=== PATIENT | male | born 1965 | race African-American/Black ===

== ENCOUNTER 2017-03-06 14:31 | Emergency (ER) | payer OTHER ==
[2017-03-06] MEDS ORDERED: ASPIRIN 81 MG TABLET, CHEWABLE PO ONE (16:36)
--- NOTE | 2017-03-06 16:41 | ER Document Report ---
ED Medical Screen (RME) - General Chief Complaint: Chest Pain Stated Complaint: RIGHT SIDE PAIN Time Seen by Provider: 03/06/17 16:22 Mode of Arrival: Ambulatory Information source: Patient Notes: This is a 51-year-old -[place] male who presents for chest pain. He has a history of COPD and hypertension. He states that he has had intermittent right-sided chest pain with radiation to the right upper extremity for the past 2 or 3 days. He denies any shortness of breath. He has had no nausea vomiting or diaphoresis. Is that he has no prior history of this type of chest pain. Today he became concerned and wanted to come to the ER to make sure he was not having a heart attack. He has not had aspirin today but he states he took 4 aspirin yesterday. His current pain level was 3 out of 10 I have greeted and performed a rapid initial assessment of this patient. A comprehensive ED assessment and evaluation of the patient, analysis of test results and completion of the medical decision making process will be conducted by additional ED providers. TRAVEL OUTSIDE OF THE [place] IN LAST 30 DAYS: No - Related Data Allergies/Adverse Reactions: No Known Allergies Allergy (Verified 12/05/14 19:53) Past Medical History - General Information source: Patient - Social History Family history: CAD, CVA, DM, Hyperlipidemia, Hypertension, Malignancy - Past Medical History Cardiac Medical History: Reports: Hx Hypertension Pulmonary Medical History: Reports: Hx Asthma, Hx Bronchitis, Hx COPD Renal/ Medical History: Denies: Hx Peritoneal Dialysis Musculoskeltal Medical History: Reports Hx Musculoskeletal Trauma Psychiatric Medical History: Reports: Hx Depression Traumatic Medical History: Reports: Hx Fractures - Clavicle - Immunizations Immunizations up to date: Yes Hx Diphtheria, Pertussis, Tetanus Vaccination: Yes Physical Exam - Vital signs Vitals: Temp Pulse Resp BP Pulse Ox 98.1 F 81 18 160/80 H 99 03/06/17 14:51 03/06/17 14:51 03/06/17 14:51 03/06/17 14:51 03/06/17 14:51 - General General appearance: Appears well, Alert In distress: None - Respiratory Respiratory status: No respiratory distress Breath sounds: Normal. No: Rales, Rhonchi, Wheezing - Cardiovascular Rhythm: Regular Heart sounds: Normal auscultation, S1 appreciated, S2 appreciated Murmur: No Course - Vital Signs Vital signs: Temp Pulse Resp BP Pulse Ox 98.1 F 81 18 160/80 H 99 03/06/17 14:51 03/06/17 14:51 03/06/17 14:51 03/06/17 14:51 03/06/17 14:51
[2017-03-06 17:13] LABS: ABSOLUTE BASOPHILS # (AUTO) 0.1 10^3/uL (0.0-0.2); ABSOLUTE EOSINOPHILS # (AUTO) 0.2 10^3/uL (0.0-0.6); ABSOLUTE MONOCYTES (AUTO) 0.5 10^3/uL (0.1-1.4); ABSOLUTE NEUT (AUTO) 2.8 10^3/uL (1.7-8.2); HEMATOCRIT 48.9 % (37.9-51.0); HGB HCT DIFFERENCE -0.9; LYMPHOCYTES % (AUTO) 36.1 % (13-45); MEAN CORPUSCULAR HEMOGLOBIN 28.7 pg (27.0-33.4); MEAN CORPUSCULAR HGB CONC 32.8 g/dL (32.0-36.0); MEAN CORPUSCULAR VOLUME 88 fl (80-97); MONOCYTES % (AUTO) 9.1 % (3-13); RED BLOOD COUNT 5.59 10^6/uL (4.35-5.55); RED CELL DISTRIBUTION WIDTH 13.3 % (11.5-14.0); SEGMENTED NEUTROPHILS % (AUTO) 50.8 % (42-78); WHITE BLOOD COUNT 5.6 10^3/uL (4.0-10.5)
[2017-03-06 17:29] LABS: ALANINE AMINOTRANSFERASE 41 U/L (21-72); ALBUMIN 3.9 g/dL (3.5-5.0); ALKALINE PHOSPHATASE 54 U/L (38-126); ANION GAP 11 (5-19); ASPARTATE AMINO TRANSFERASE 31 U/L (17-59); BILIRUBIN,DIRECT 0.3 mg/dL (0.0-0.4); BILIRUBIN,TOTAL 0.4 mg/dL (0.2-1.3); BLOOD UREA NITROGEN 15 mg/dL (7-20); CALCIUM 9.2 mg/dL (8.4-10.2); CARBON DIOXIDE 25 mmol/L (22-30); CHLORIDE 104 mmol/L (98-107); CREATINE KINASE 393 U/L (55-170); CREATININE RESULT 1.02 mg/dL (0.52-1.25); GLUCOSE 80 mg/dL (75-110); POTASSIUM 3.8 mmol/L (3.6-5.0); SODIUM 140.4 mmol/L (137-145); TOTAL PROTEIN 6.9 g/dL (6.3-8.2)
[2017-03-06 17:40] LABS: CREATINE KINASE MB 2.23 ng/mL (<4.55)
[2017-03-06 17:41] LABS: TROPONIN I < 0.012 ng/mL
--- NOTE | 2017-03-06 17:55 | RADIOLOGY REPORT (SQ) ---
EXAM DESCRIPTION: CHEST SINGLE VIEW COMPLETED DATE/TIME: 03/06/2017 5:03 pm REASON FOR STUDY: right sided chest pain COMPARISON: 09/03/2016 EXAM PARAMETERS: NUMBER OF VIEWS: One view. TECHNIQUE: Single frontal radiographic view of the chest acquired. RADIATION DOSE: NA LIMITATIONS: None. FINDINGS: LUNGS AND PLEURA: No acute opacities, masses or pneumothorax. No pleural effusion. MEDIASTINUM AND HILAR STRUCTURES: No masses. Contour normal. HEART AND VASCULAR STRUCTURES: Heart normal in size. Normal vasculature. BONES: No acute findings. HARDWARE: None in the chest. OTHER: No other significant finding. IMPRESSION: NO ACUTE RADIOGRAPHIC FINDING IN THE CHEST. TECHNICAL DOCUMENTATION: JOB ID: [id number]
--- NOTE | 2017-03-06 19:11 | ER Document Report ---
ED General - General Chief Complaint: Chest Pain Stated Complaint: RIGHT SIDE PAIN Time Seen by Provider: 03/06/17 16:22 Mode of Arrival: Ambulatory Information source: Patient Notes: 51-year-old male presents with reproducible right chest wall pain with right arm pain of 2-3 day duration. pt ntoes the pain has been constant sicne last night . pt notes that it feels like a tightness around the arm with tingling of the fingers TRAVEL OUTSIDE OF THE [place] IN LAST 30 DAYS: No - HPI Onset: Other Onset/Duration: Persistent Quality of pain: Achy Severity: Mild Pain Level: 1 Associated symptoms: Chest pain Exacerbated by: Denies Relieved by: Other - resolved with movement and exertion Similar symptoms previously: No Recently seen / treated by doctor: No - Related Data Allergies/Adverse Reactions: No Known Allergies Allergy (Verified 03/06/17 17:58) Past Medical History - General Information source: Patient - Social History Smoking Status: Current Every Day Smoker Cigarette use (# per day): Yes Chew tobacco use (# tins/day): No Smoking Education Provided: No Frequency of alcohol use: Occasional Drug Abuse: None Family History: Malignancy - Past Medical History Cardiac Medical History: Reports: Hx Hypertension Pulmonary Medical History: Reports: Hx Asthma, Hx Bronchitis, Hx COPD Renal/ Medical History: Denies: Hx Peritoneal Dialysis Musculoskeltal Medical History: Reports Hx Musculoskeletal Trauma Psychiatric Medical History: Reports: Hx Depression Traumatic Medical History: Reports: Hx Fractures - Clavicle Surgical Hx: Negative - Immunizations Immunizations up to date: Yes Hx Diphtheria, Pertussis, Tetanus Vaccination: Yes Hx Pneumococcal Vaccination: 07/11/12 Review of Systems - Review of Systems Notes: PHYSICAL EXAMINATION: GENERAL: Well-appearing, well-nourished and in no acute distress. HEAD: Atraumatic, normocephalic. EYES: Pupils equal round and reactive to light, extraocular movements intact, sclera anicteric, conjunctiva are normal. ENT: Nares patent, oropharynx clear without exudates. Moist mucous membranes. NECK: Normal range of motion, supple without lymphadenopathy LUNGS: Breath sounds clear to auscultation bilaterally and equal. No wheezes rales or rhonchi. HEART: Regular rate and rhythm without murmurs ABDOMEN: Soft, nontender, nondistended abdomen. No guarding, no rebound. No masses appreciated. Musculoskeletal: Normal range of motion, no pitting or edema. No cyanosis. NEUROLOGICAL: Cranial nerves grossly intact. Normal speech, normal gait. Normal sensory, motor exams PSYCH: Normal mood, normal affect. SKIN: Warm, Dry, normal turgor, no rashes or lesions noted. Physical Exam - Vital signs Vitals: Temp Pulse Resp BP Pulse Ox 98.1 F 81 18 160/80 H 99 03/06/17 14:51 03/06/17 14:51 03/06/17 14:51 03/06/17 14:51 03/06/17 14:51 Course - Re-evaluation Re-evalutation: 03/06/17 19:10 Given that chest pain has been constant since last night, pain is improved with exertion and movement and is reproducible on palpation I have low suspicion for a cardiac event however a second set of troponin is pending at this time 03/06/17 23:18 Patient's pain appears to be noncardiac, 2 sets of cardiac enzymes are negative. Patient otherwise is stable. He refuses to be admitted, will discharge him to follow-up with camera assembler After performing a Medical Screening Examination, I estimate there is LOW risk for RUPTURED ESOPHAGUS, PNEUMOTHORAX, PULMONARY EMBOLISM, ACUTE CORONARY SYNDROME, OR THORACIC AORTIC DISSECTION, thus I consider the discharge disposition reasonable. I have reevaluated this patient multiple times and no significant life threatening changes are noted. The patient and I have discussed the diagnosis and risks, and we agree with discharging home with close follow-up. We also discussed returning to the Emergency Department immediately if new or worsening symptoms occur. We have discussed the symptoms which are most concerning (e.g., bloody sputum, worsening pain or shortness of breath) that necessitate immediate return. - Vital Signs Vital signs: Temp Pulse Resp BP Pulse Ox 98.7 F 66 17 107/55 L 100 03/06/17 17:55 03/06/17 17:55 03/06/17 21:01 03/06/17 21:01 03/06/17 21:01 - Laboratory Result Diagrams: 03/06/17 16:45 03/06/17 16:45 Laboratory results interpreted by me: 03/06/17 03/06/17 16:45 16:45 RBC 5.59 H Creatine Kinase 393 H - Diagnostic Test Radiology reviewed: Image reviewed, Reports reviewed - EKG Interpretation by Me EKG shows normal: Sinus rhythm, [place], Intervals, QRS Complexes Discharge - Discharge Clinical Impression: Chest pain Qualifiers: Chest pain type: unspecified Qualified Code(s): R07.9 - Chest pain, unspecified Condition: Stable Disposition: HOME, SELF-CARE Instructions: Chest Wall Pain ([facility]), Chest Pain of Unclear Cause ([facility]) Prescriptions: Naproxen 500 mg PO Q8 #20 tablet Referrals: RODRIGO DELGADILLO MD [ACTIVE STAFF] - Follow up tomorrow
[2017-03-06] MEDS: NITROGLYCERIN 0.4 MG/TAB 25 TAB/BOTTLE SL PRN ×2 (19:54→20:05)
--- NOTE | 2017-03-06 21:11 | EKG REPORT ---
SEVERITY:- BORDERLINE ECG - SINUS RHYTHM PROBABLE LEFT ATRIAL ABNORMALITY : Confirmed by: Robert Harry 06-Mar-2017 21:11:07
[2017-03-06 23:24] VITALS: BP 118/79
== END 2017-03-06 23:10 | disposition home or self-care (01) ==
LOC: ER 14:31
DX: R07.9 Chest pain, unspecified (principal); R07.89 Other chest pain; F17.210 Nicotine dependence, cigarettes, uncomplicated
CPT/HCPCS: 36415; 71010; 80053; 82550; 82553; 84484; 85025; 93005; 93010; 99285

== ENCOUNTER 2017-05-30 13:59 | Emergency (ER) | payer OTHER ==
[2017-05-30] MEDS ORDERED: BUDESONIDE/FORMOTEROL 160-4.5 MCG 60 PUFF/6 GM MDI IH ONE (14:59)
--- NOTE | 2017-05-30 15:29 | RADIOLOGY REPORT (SQ) ---
EXAM DESCRIPTION: CHEST PA/LAT COMPLETED DATE/TIME: 05/30/2017 3:12 pm REASON FOR STUDY: cough/sob COMPARISON: 03/06/2017 EXAM PARAMETERS: NUMBER OF VIEWS: two views TECHNIQUE: Digital Frontal and Lateral radiographic views of the chest acquired. RADIATION DOSE: NA LIMITATIONS: none FINDINGS: LUNGS AND PLEURA: No opacities, masses or pneumothorax. No pleural effusion. MEDIASTINUM AND HILAR STRUCTURES: No masses or contour abnormalities. HEART AND VASCULAR STRUCTURES: Heart normal size. No evidence for failure. BONES: No acute findings. HARDWARE: None in the chest. OTHER: No other significant finding. IMPRESSION: NO SIGNIFICANT RADIOGRAPHIC FINDING IN THE CHEST. TECHNICAL DOCUMENTATION: JOB ID: [id number] [employer]- All Rights Reserved
--- NOTE | 2017-05-30 15:41 | ER Document Report ---
ED General - General Chief Complaint: Breathing Difficulty Stated Complaint: DIFFICULTY BREATHING Time Seen by Provider: 05/30/17 14:58 Mode of Arrival: Ambulatory Information source: Patient Notes: Patient reports that he is felt short of breath for approximately 1 week. He states approximately 1 week ago he ran out of his inhaler. He states he has had a cough productive of clear phlegm. The shortness of breath is worse with exertion and better with rest. There is no known radiation of the symptoms. They are constant. He denies any fever or rashes. TRAVEL OUTSIDE OF THE [place] IN LAST 30 DAYS: No - Related Data Allergies/Adverse Reactions: No Known Allergies Allergy (Verified 05/30/17 14:08) Home Medications: Current Home Medications Budesonide/Formoterol Fumarate [Symbicort HFA 160-4.5 mcg Inhaler 6 gm] [History] Past Medical History - General Information source: Patient - Social History Smoking Status: Former Smoker Chew tobacco use (# tins/day): No Frequency of alcohol use: Occasional Drug Abuse: None Family History: Reviewed & Not Pertinent, Malignancy - Past Medical History Cardiac Medical History: Reports: Hx Hypertension Pulmonary Medical History: Reports: Hx Asthma, Hx Bronchitis, Hx COPD Renal/ Medical History: Denies: Hx Peritoneal Dialysis Musculoskeltal Medical History: Reports Hx Musculoskeletal Trauma Psychiatric Medical History: Reports: Hx Depression Traumatic Medical History: Reports: Hx Fractures - Clavicle Surgical Hx: Negative - Immunizations Immunizations up to date: Yes Hx Diphtheria, Pertussis, Tetanus Vaccination: Yes Hx Pneumococcal Vaccination: 07/11/12 Review of Systems - Review of Systems Constitutional: denies: Chills, Fever Cardiovascular: denies: Chest pain, Palpitations Respiratory: Cough, Short of breath -: Yes All other systems reviewed and negative Physical Exam - Vital signs Vitals: Temp Pulse Resp BP Pulse Ox 98.2 F 76 20 143/96 H 95 05/30/17 14:05 05/30/17 14:05 05/30/17 14:05 05/30/17 14:05 05/30/17 14:05 Interpretation: Hypertensive - General General appearance: Appears well, Alert - HEENT Head: Normocephalic, Atraumatic Eyes: Normal Pupils: PERRL - Respiratory Respiratory status: No respiratory distress Chest status: Nontender Breath sounds: Decreased air movement, Rhonchi Chest palpation: Normal - Cardiovascular Rhythm: Regular Heart sounds: Normal auscultation Murmur: No - Abdominal Inspection: Normal Distension: No distension Bowel sounds: Normal Tenderness: Nontender Organomegaly: No organomegaly - Back Back: Normal, Nontender - Extremities General upper extremity: Normal inspection, Nontender, Normal color, Normal ROM , Normal temperature General lower extremity: Normal inspection, Nontender, Normal color, Normal ROM , Normal temperature, Normal weight bearing. No: Kylie's sign - Neurological Neuro grossly intact: Yes Cognition: Normal Orientation: AAOx4 Amari Coma Scale Eye Opening: Spontaneous [place] Coma Scale Verbal: Oriented Amari Coma Scale Motor: Obeys Commands Amari Coma Scale Total: 15 Speech: Normal Motor strength normal: LUE, RUE, LLE, RLE Sensory: Normal - Psychological Associated symptoms: Normal affect, Normal mood - Skin Skin Temperature: Warm Skin Moisture: Dry Skin Color: Normal Course - Vital Signs Vital signs: Temp Pulse Resp BP Pulse Ox 98.2 F 76 20 143/96 H 95 05/30/17 14:05 05/30/17 14:05 05/30/17 14:05 05/30/17 14:05 05/30/17 14:05 - Diagnostic Test Radiology reviewed: Image reviewed, Reports reviewed - No acute pathology on chest x-ray. Discharge - Discharge Clinical Impression: Acute exacerbation of chronic obstructive pulmonary disease (COPD) Condition: Stable Disposition: HOME, SELF-CARE Instructions: Chronic Obstructive Lung Disease ([facility]) Additional Instructions: Please call your primary care provider as soon as possible to arrange follow-up. Prescriptions: Prednisone [Deltasone 20 mg Tablet] 3 tab PO DAILY 5 Days tablet
[2017-05-30 15:49] VITALS: BP 147/95
== END 2017-05-30 15:49 | disposition home or self-care (01) ==
LOC: ER 13:59
DX: J44.1 Chronic obstructive pulmonary disease with (acute) exacerbation (principal); T38.0X6A Underdosing of glucocorticoids and synthetic analogues, initial encounter; Z91.128 Patient's intentional underdosing of medication regimen for other reason; Z91.14 Patient's other noncompliance with medication regimen; R05 Cough; R06.02 Shortness of breath; I10 Essential (primary) hypertension; Z87.891 Personal history of nicotine dependence
CPT/HCPCS: 99284; 71020; J3490

== ENCOUNTER 2018-01-30 17:42 | Emergency (ER) | payer OTHER ==
--- NOTE | 2018-01-30 19:51 | ER Document Report ---
HPI - HPI Patient complains to provider of: Wheezing for 2 days Onset: Other - 2 days Onset/Duration: Persistent, Worse Pain Level: 3 Context: 52-year-old asthmatic smoker COPD patient ran out of the Aniwayscort 1 week ago. He also started wheezing and coughing with shortness of breath/chest tightness for 2 days. He attributes this to the weather change. He does have a albuterol metered-dose inhaler which has not helped since Monday. No fever or chills but he has been having some night sweats. PCP: [email or web address] but has not been for some time. Associated Symptoms: None Exacerbated by: Denies Relieved by: Denies Similar symptoms previously: Yes Recently seen / treated by doctor: No - ROS ROS below otherwise negative: Yes Systems Reviewed and Negative: Yes All other systems reviewed and negative Past Medical History - General Information source: Patient - Social History Smoking Status: Current Every Day Smoker Frequency of alcohol use: None Drug Abuse: Marijuana Lives with: Family Family History: Reviewed & Not Pertinent, Malignancy - Past Medical History Cardiac Medical History: Reports: Hx Hypertension Pulmonary Medical History: Reports: Hx Asthma, Hx Bronchitis, Hx COPD Renal/ Medical History: Denies: Hx Peritoneal Dialysis Musculoskeltal Medical History: Reports Hx Musculoskeletal Trauma Psychiatric Medical History: Reports: Hx Depression Traumatic Medical History: Reports: Hx Fractures - Clavicle Surgical Hx: Negative - Immunizations Immunizations up to date: Yes Hx Diphtheria, Pertussis, Tetanus Vaccination: Yes Hx Pneumococcal Vaccination: 07/11/12 Vertical Provider Document - CONSTITUTIONAL Agree With Documented VS: Yes Exam Limitations: No Limitations - INFECTION CONTROL TRAVEL OUTSIDE OF THE [place] IN LAST 30 DAYS: No - HEENT HEENT: Pharyngeal Erythema. negative: Conjuctival Injection - NECK Neck: Supple. negative: Lymphadenopathy-Left, Lymphadenopathy-Right - RESPIRATORY Respiratory: Wheezing - Inspiratory expiratory bilateral - CARDIOVASCULAR Cardiovascular: Regular Rate, Regular Rhythm - GI/ABDOMEN Gastrointestinal: Abdomen Soft, Abdomen Non-Tender - MUSCULOSKELETAL/EXTREMETIES Musculoskeletal/Extremeties: MAEW - NEURO Level of Consciousness: Awake - DERM Integumentary: Warm, Dry, No Rash Course - Re-evaluation Re-evalutation: 01/30/18 20:35 wheezing persists but is not as bad, pulse ox 95%, going to xray. 01/30/18 21:10 Inspiratory wheeze persists pulse ox is ranging from 95-98% while in the bed I will ambulate him to see his Decadron 10 mg IM. Patient feels a lot better 01/30/18 21:11 Chest x-ray is negative. 01/30/18 21:17 Pulse ox 100% while ambulating - Vital Signs Vital signs: Temp Pulse Resp BP Pulse Ox 98.0 F 74 20 152/88 H 95 01/30/18 18:01 01/30/18 18:01 01/30/18 18:01 01/30/18 18:01 01/30/18 18:01 Discharge - Discharge Clinical Impression: COPD, Asthma exacerbation Condition: Good Disposition: HOME, SELF-CARE Instructions: Stop Smoking ([facility]), Steroid Medication, Steroid Medication Injection, Inhaled Bronchodilators ([facility]) Additional Instructions: Return to the emergency room if worsens Use your albuterol metered-dose inhaler tonight 2 puffs every 3 hours Plenty of fluids See the [place] provider this week for follow-up Prescription for Symbicort Prescription for prednisone Prescription for nebulizer Referral to a medical oncologist Prescriptions: Albuterol Sulfate [Ventolin 0.083% Neb 2.5 mg/3 mL Ampul] 2.5 mg NEB Q3HP PRN # 25 vial PRN Reason: Nebulizer and Compressor [[place] Choice Nebulizer] 1 each MC Q4HP PRN #1 each PRN Reason: Budesonide/Formoterol Fumarate [Symbicort Hfa 160-4.5 Mcg Inhaler 6 gm] 2 puff IH Q12 #1 inhaler Prednisone [Deltasone 10 mg Tablet] 10 mg PO ASDIR PRN #21 tablet PRN Reason: Referrals: MASHA ROBERTS MD [ACTIVE STAFF] - Follow up in 3-5 days
[2018-01-30] MEDS ORDERED: ALBUTEROL SULFATE 0.083% NEB 2.5 MG/3 ML AMPUL NEB ONE (19:55)
[2018-01-30] MEDS ORDERED: IPRATROPIUM/ALBUTEROL 0.5-2.5 MG/3 ML AMPUL NEB ONE ×2 (19:55→19:57)
[2018-01-30] MEDS ORDERED: PREDNISONE 20 MG TABLET PO ONE (19:55)
--- NOTE | 2018-01-30 21:03 | RADIOLOGY REPORT (SQ) ---
EXAM DESCRIPTION: CHEST 2 VIEWS COMPLETED DATE/TIME: 01/30/2018 8:47 pm REASON FOR STUDY: cough, wheeze COMPARISON: 05/30/2017 EXAM PARAMETERS: NUMBER OF VIEWS: two views TECHNIQUE: Digital Frontal and Lateral radiographic views of the chest acquired. RADIATION DOSE: NA LIMITATIONS: none FINDINGS: LUNGS AND PLEURA: No opacities, masses or pneumothorax. No pleural effusion. MEDIASTINUM AND HILAR STRUCTURES: No masses or contour abnormalities. HEART AND VASCULAR STRUCTURES: Heart normal size. No evidence for failure. BONES: No acute findings. HARDWARE: None in the chest. OTHER: No other significant finding. IMPRESSION: NO ACUTE RADIOGRAPHIC FINDING IN THE CHEST. TECHNICAL DOCUMENTATION: JOB ID: [id number] [employer]- All Rights Reserved Reading location - IP/workstation name: [email or web address]
[2018-01-30] MEDS ORDERED: DEXAMETHASONE SOD PHOS INJ 10 MG/1 ML VIAL IM ONE (21:10)
[2018-01-30] MEDS ORDERED: ALBUTEROL SULFATE HFA (90 MCG/PUFF) 8 GM MDI (1 MDI/ER DISP) IH PRN (21:15)
[2018-01-30 21:58] VITALS: BP 143/87
== END 2018-01-30 21:58 | disposition home or self-care (01) ==
LOC: ER 17:42
DX: J44.1 Chronic obstructive pulmonary disease with (acute) exacerbation (principal); F17.200 Nicotine dependence, unspecified, uncomplicated; I10 Essential (primary) hypertension
CPT/HCPCS: 94640 ×2; 99285; 96372; 71046; J7512; J1100; J3490; J7620

== ENCOUNTER 2018-02-05 16:22 | Emergency (ER) | payer OTHER ==
[2018-02-05] MEDS ORDERED: IPRATROPIUM/ALBUTEROL 0.5-2.5 MG/3 ML AMPUL NEB ONE ×3 (17:51→19:11)
[2018-02-05] MEDS ORDERED: PREDNISONE 20 MG TABLET PO ONE (17:51)
--- NOTE | 2018-02-05 17:52 | ER Document Report ---
ED Medical Screen (RME) - General Chief Complaint: Breathing Difficulty Stated Complaint: SHORTNESS OF BREATH Time Seen by Provider: 02/05/18 17:51 Notes: Patient states that he has a history of asthma and COPD. He states he was seen here approximate 1 week ago for shortness of breath. At that time he states he was given some prescriptions but he has not filled the prednisone. He also states she has not filled the Symbicort because of cost. [facility] but he was told it would be a 1 month wait. He states he has been using his albuterol at home without improvement. TRAVEL OUTSIDE OF THE [place] IN LAST 30 DAYS: No - Related Data Allergies/Adverse Reactions: No Known Allergies Allergy (Verified 02/05/18 17:40) Past Medical History - Social History Chew tobacco use (# tins/day): No Frequency of alcohol use: None Drug Abuse: None Family history: CAD, CVA, DM, Hyperlipidemia, Hypertension, Malignancy - Past Medical History Cardiac Medical History: Reports: Hx Hypertension Pulmonary Medical History: Reports: Hx Asthma, Hx Bronchitis, Hx COPD Renal/ Medical History: Denies: Hx Peritoneal Dialysis Musculoskeltal Medical History: Reports Hx Musculoskeletal Trauma Psychiatric Medical History: Reports: Hx Depression Traumatic Medical History: Reports: Hx Fractures - Clavicle - Immunizations Immunizations up to date: Yes Hx Diphtheria, Pertussis, Tetanus Vaccination: Yes Physical Exam - Vital signs Vitals: Temp Pulse Resp BP Pulse Ox 98.7 F 86 16 136/84 H 94 02/05/18 16:46 02/05/18 16:46 02/05/18 16:46 02/05/18 16:46 02/05/18 16:46 Course - Vital Signs Vital signs: Temp Pulse Resp BP Pulse Ox 98.7 F 86 16 136/84 H 94 02/05/18 16:46 02/05/18 16:46 02/05/18 16:46 02/05/18 16:46 02/05/18 16:46
--- NOTE | 2018-02-05 18:20 | RADIOLOGY REPORT (SQ) ---
EXAM DESCRIPTION: CHEST 2 VIEWS COMPLETED DATE/TIME: 02/05/2018 6:12 pm REASON FOR STUDY: cough/sob COMPARISON: 01/30/2018 NUMBER OF VIEWS: Two view. TECHNIQUE: Frontal and lateral radiographic views of the chest acquired. LIMITATIONS: None. FINDINGS: LUNGS AND PLEURA: Peribronchial cuffing and interstitial changes. No consolidation, effus ion, or pneumothorax. MEDIASTINUM AND HILAR STRUCTURES: No masses. No contour abnormalities. HEART AND VASCULAR STRUCTURES: Heart normal in size and contour. No evidence for failure. BONES: No acute findings. HARDWARE: None in the chest. OTHER: No other significant finding. IMPRESSION: REACTIVE AIRWAY DISEASE VERSUS VIRAL SYNDROME. NO CONSOLIDATION. TECHNICAL DOCUMENTATION: JOB ID: [id number] [employer]- All Rights Reserved Reading location - IP/workstation name: [email or web address]
[2018-02-05 18:34] LABS: ABSOLUTE BASOPHILS # (AUTO) 0.1 10^3/uL (0.0-0.2); ABSOLUTE EOSINOPHILS # (AUTO) 0.5 10^3/uL (0.0-0.6); ABSOLUTE MONOCYTES (AUTO) 0.7 10^3/uL (0.1-1.4); ABSOLUTE NEUT (AUTO) 3.7 10^3/uL (1.7-8.2); BASOPHILS % (AUTO) 0.9 % (0-2); EOSINOPHILS % (AUTO) 5.9 % (0-6); HEMATOCRIT 48.8 % (37.9-51.0); HEMOGLOBIN 16.5 g/dL (13.5-17.0); LYMPHOCYTES % (AUTO) 38.1 % (13-45); MEAN CORPUSCULAR HEMOGLOBIN 29.3 pg (27.0-33.4); MEAN CORPUSCULAR HGB CONC 33.8 g/dL (32.0-36.0); MEAN CORPUSCULAR VOLUME 87 fl (80-97); MONOCYTES % (AUTO) 9.1 % (3-13); PLATELET COUNT 345 10^3/uL (150-450); RED BLOOD COUNT 5.62 10^6/uL (4.35-5.55); RED CELL DISTRIBUTION WIDTH 13.1 % (11.5-14.0); TOTAL CELLS COUNTED % (AUTO) 100 %; WHITE BLOOD COUNT 7.9 10^3/uL (4.0-10.5)
[2018-02-05 18:55] LABS: ALANINE AMINOTRANSFERASE 35 U/L (21-72); ALBUMIN 3.8 g/dL (3.5-5.0); ALKALINE PHOSPHATASE 57 U/L (38-126); ANION GAP 12 (5-19); ASPARTATE AMINO TRANSFERASE 22 U/L (17-59); BILIRUBIN,DIRECT 0.3 mg/dL (0.0-0.4); BILIRUBIN,TOTAL 0.3 mg/dL (0.2-1.3); BLOOD UREA NITROGEN 14 mg/dL (7-20); CARBON DIOXIDE 26 mmol/L (22-30); CHLORIDE 105 mmol/L (98-107); GLUCOSE 81 mg/dL (75-110); POTASSIUM 3.9 mmol/L (3.6-5.0); SODIUM 143.4 mmol/L (137-145); TOTAL PROTEIN 6.6 g/dL (6.3-8.2)
[2018-02-05] MEDS: MAGNESIUM SULFATE/D5W 1 GM/100 ML RTUPB IV SCH ×2 (19:03→19:43)
[2018-02-05] MEDS ORDERED: ALBUTEROL SULFATE 0.083% NEB 2.5 MG/3 ML AMPUL NEB ONE ×2 (19:09→19:11)
--- NOTE | 2018-02-05 19:10 | ER Document Report ---
ED Respiratory Problem - General Mode of Arrival: Ambulatory Information source: Patient TRAVEL OUTSIDE OF THE [place] IN LAST 30 DAYS: No <CHARLIE BRADLEY - Last Filed: 02/05/18 19:39> <MULUGETA ADLER - Last Filed: 02/05/18 21:14> - General Chief Complaint: Breathing Difficulty Stated Complaint: SHORTNESS OF BREATH Time Seen by Provider: 02/05/18 17:51 Notes: Patient is a 52-year-old male with a history of asthma and COPD presents to emergency department complaining of difficulty breathing. Patient was seen here approximately 1 week ago for shortness of breath. He states he was given a prescription of Predisone but has yet to fill it. Patient also states that he has been using albuterol without any improvement. At bedside patient states that he received breathing treatments and steroids in triage although they did not alleviate his symptoms. Patient denies any fever. (CHARLIE BRADLEY) - Related Data Allergies/Adverse Reactions: No Known Allergies Allergy (Verified 02/05/18 17:40) Past Medical History - General Information source: Patient - Social History Smoking Status: Former Smoker Chew tobacco use (# tins/day): No Frequency of alcohol use: None Drug Abuse: None Family History: Reviewed & Not Pertinent, Malignancy Patient has suicidal ideation: No Patient has homicidal ideation: No - Past Medical History Cardiac Medical History: Reports: Hx Hypertension Pulmonary Medical History: Reports: Hx Asthma, Hx Bronchitis, Hx COPD Musculoskeltal Medical History: Reports Hx Musculoskeletal Trauma Psychiatric Medical History: Reports: Hx Depression Traumatic Medical History: Reports: Hx Fractures - Clavicle - Immunizations Immunizations up to date: Yes Hx Diphtheria, Pertussis, Tetanus Vaccination: Yes Hx Pneumococcal Vaccination: 07/11/12 <CHARLIE BRADLEY - Last Filed: 02/05/18 19:39> Review of Systems - Review of Systems Constitutional: No symptoms reported EENT: No symptoms reported Cardiovascular: No symptoms reported Respiratory: See HPI Gastrointestinal: No symptoms reported Genitourinary: No symptoms reported Male Genitourinary: No symptoms reported Musculoskeletal: No symptoms reported Skin: No symptoms reported Hematologic/Lymphatic: No symptoms reported Neurological/Psychological: No symptoms reported -: Yes All other systems reviewed and negative <CHARLIE BRADLEY - Last Filed: 02/05/18 19:39> Physical Exam <CHARLIE BRADLEY - Last Filed: 02/05/18 19:39> <MULUGETA ADLER - Last Filed: 02/05/18 21:14> - Vital signs Vitals: Temp Pulse Resp BP Pulse Ox 98.7 F 86 16 136/84 H 94 02/05/18 16:46 02/05/18 16:46 02/05/18 16:46 02/05/18 16:46 02/05/18 16:46 - Notes Notes: GENERAL: Alert, interacts well. Mild distress. HEAD: Normocephalic, atraumatic. EYES: Pupils equal, round, and reactive to light. Extraocular movements intact. ENT: Oral mucosa moist, tongue midline. NECK: Full range of motion. Supple. Trachea midline. LUNGS: Mild respiratory distress. Expiratory wheezing throughout the exam, hypoxic. HEART: Tachypneic. No murmurs, gallops, or rubs. ABDOMEN: Soft, non-tender. Non-distended. Bowel sounds present in all 4 quadrants. EXTREMITIES: Moves all 4 extremities spontaneously. No edema, radial and dorsalis pedis pulses 2/4 bilaterally. No cyanosis. NEUROLOGICAL: Alert and oriented x3. Normal speech. PSYCH: Normal affect, normal mood. SKIN: Warm, dry, normal turgor. No rashes or lesions noted. (CHARLIE BRADLEY) Course - Laboratory Result Diagrams: 02/05/18 18:18 02/05/18 18:18 <CHARLIE BRADLEY - Last Filed: 02/05/18 19:39> - Laboratory Result Diagrams: 02/05/18 18:18 02/05/18 18:18 <MULUGETA ADLER - Last Filed: 02/05/18 21:14> - Re-evaluation Re-evalutation: 02/05/18 19:10 Patient rechecked. Still wheezing throughout exam. (CHARLIE BRADLEY) 02/05/18 21:03 Patient is feeling better wheezing has completely resolved. 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 Patient also has a prescription for prednisone that he is going to start taking tomorrow. States that he got it last week but never filled it because he was worried about using steroids all the time. Patient has been advised that if he uses the Symbicort he will be less likely to get exacerbations of his COPD. Patient is also instructed to take Claritin or Zyrtec [id number]-xaqipbw daily due to the likelihood that his asthma is being exacerbated by pollen. Understands and agrees with plan. Stable for discharge. Grateful for care. (MULUGETA ADLER) - Vital Signs Vital signs: Temp Pulse Resp BP Pulse Ox 98.7 F 86 16 136/84 H 94 02/05/18 16:46 02/05/18 16:46 02/05/18 16:46 02/05/18 16:46 02/05/18 16:46 - Laboratory Laboratory results interpreted by me: 02/05/18 18:18 RBC 5.62 H Critical Care Note - Critical Care Note Total time excluding time spent on procedures (mins): 35 - Evaluation and management of respiratory distress, management of COPD exacerbation, multiple re -evaluations, education of patient <MULUGETA ADLER - Last Filed: 02/05/18 21:14> Discharge <CHARLIE BRADLEY - Last Filed: 02/05/18 19:39> <MULUGETA ADLER - Last Filed: 02/05/18 21:14> - Discharge Clinical Impression: COPD exacerbation, Respiratory distress Condition: Stable Disposition: HOME, SELF-CARE Instructions: Chronic Obstructive Lung Disease ([facility]) Additional Instructions: Please fill your prescription for prednisone and start taking it tomorrow. Please make sure that you cigar packer and picker your [facility] this [facility]. Start taking an goer-ihh-heovake antihistamine, such as Claritin or Zyrtec, daily. Prescriptions: Cetirizine HCl [Zyrtec 10 mg Tablet] 1 tab PO DAILY #30 tablet Prednisone 60 mg PO DAILY #9 tablet Scribe Attestation: 02/05/18 21:14 I personally performed the services described in the documentation, reviewed and edited the documentation which was dictated to the scribe in my presence, and it accurately records my words and actions. (MULUGETA ADLER) Scribe Documentation - Scribe Written by Ale:: Ale Stanley, 02/05/2018 19:38 acting as scribe for :: Mable <CHARLIE BRADLEY - Last Filed: 02/05/18 19:39>
[2018-02-05] MEDS ORDERED: NORMAL SALINE 1000 ML 500 ML IV ONE (20:03)
[2018-02-05 21:27] VITALS: BP 121/76
== END 2018-02-05 21:40 | disposition home or self-care (01) ==
LOC: ER 16:22
DX: J44.1 Chronic obstructive pulmonary disease with (acute) exacerbation (principal); R06.03 Acute respiratory distress; I10 Essential (primary) hypertension
CPT/HCPCS: 96376; 94640 ×2; 99285; 96361; 96365; 36415; 85025; 80053; 71046; J3475; J7512; J7030; J7620

== ENCOUNTER 2018-08-23 11:22 | Emergency (ER) | payer OTHER ==
[2018-08-23 13:12] LABS: A TYPE INFLUENZA AG NEGATIVE (NEGATIVE); B INFLUENZA AG NEGATIVE (NEGATIVE)
[2018-08-23] MEDS ORDERED: PREDNISONE 20 MG TABLET PO ONE (14:27)
[2018-08-23] MEDS ORDERED: IPRATROPIUM/ALBUTEROL 0.5-2.5 MG/3 ML AMPUL NEB ONE (14:27)
--- NOTE | 2018-08-23 14:38 | ER Document Report ---
ED Respiratory Problem - General Chief Complaint: Cold Symptoms Stated Complaint: FLU SX Time Seen by Provider: 08/23/18 13:08 Notes: Patient is a 52-year-old male presenting to the emergency department complaining of cough and congestion for the last 7-day. Patient is admitting to subjective fever, chills. Patient's denying any nausea, vomiting, diarrhea. Patient states he has been taking his at home albuterol inhaler twice a day for the last 3 days to help his cough. Patient's denying any shortness of breath, chest pain, abdominal pain. Past medical history: COPD, asthma Medications: Symbicort, albuterol Allergies: None Surgical history: None Patient denies cigarette smoking, denies illicit drug use, admits to occasional EtOH use. TRAVEL OUTSIDE OF THE [place] IN LAST 30 DAYS: No - Related Data Allergies/Adverse Reactions: No Known Allergies Allergy (Verified 08/23/18 11:43) Past Medical History - General Information source: Patient - Social History Smoking Status: Never Smoker Chew tobacco use (# tins/day): No Frequency of alcohol use: None Drug Abuse: None Lives with: Alone Family History: Reviewed & Not Pertinent, Malignancy Patient has suicidal ideation: No Patient has homicidal ideation: No - Past Medical History Cardiac Medical History: Reports: Hx Hypertension Pulmonary Medical History: Reports: Hx Asthma, Hx Bronchitis, Hx COPD Renal/ Medical History: Denies: Hx Peritoneal Dialysis Musculoskeletal Medical History: Reports Hx Musculoskeletal Trauma Psychiatric Medical History: Reports: Hx Depression Traumatic Medical History: Reports: Hx Fractures - Clavicle - Immunizations Immunizations up to date: Yes Hx Diphtheria, Pertussis, Tetanus Vaccination: Yes Hx Pneumococcal Vaccination: 07/11/12 Review of Systems - Review of Systems Constitutional: See HPI EENT: See HPI Cardiovascular: See HPI Respiratory: See HPI Gastrointestinal: See HPI Genitourinary: No symptoms reported Male Genitourinary: No symptoms reported Musculoskeletal: No symptoms reported Skin: No symptoms reported Hematologic/Lymphatic: No symptoms reported Neurological/Psychological: No symptoms reported Physical Exam - Vital signs Vitals: Temp Pulse Resp BP Pulse Ox 98.7 F 72 20 123/73 95 08/23/18 11:50 08/23/18 11:50 08/23/18 11:50 08/23/18 11:50 08/23/18 11:50 - Notes Notes: GENERAL: Alert, interacts well. No acute distress. HEAD: Normocephalic, atraumatic. No frontal or maxillary sinus tenderness. EYES: Pupils equal, round, and reactive to light. Extraocular movements intact. ENT: Oral mucosa moist, tongue midline. Nares patent, swollen turbinates bilaterally, TM's intact nonerythematous, nonbulging. Pharynx within normal limits, no palatal petechiae or exudate noted. Tonsils +1 bilaterally NECK: Full range of motion. Supple. Trachea midline. No lymphadenopathy appreciated LUNGS: Expiratory wheeze and prolonged expiratory phase heard in all lung oconnor. No rales, or rhonchi. No respiratory distress. HEART: Regular rate and rhythm. No murmur ABDOMEN: Soft, non-tender. Non-distended. Bowel sounds present in all 4 quadrants. EXTREMITIES: Moves all 4 extremities spontaneously. No edema, normal radial and dorsalis pedis pulses bilaterally. No cyanosis. BACK: no cervical, thoracic, lumbar midline tenderness. No saddle anesthesia, normal distal neurovascular exam. NEUROLOGICAL: Alert and oriented x3. Normal speech. cranial nerves II through XII grossly intact. PSYCH: Normal affect, normal mood. SKIN: Warm, dry, normal turgor. No rashes or lesions noted. Course - Re-evaluation Re-evalutation: 08/23/18 16:11 Upon initial reexamination patient still with expiratory wheeze all oconnor. Patient states he feels a lot better. Discussed 1 more albuterol treatment in the emergency room and then discharged home. Patient's is requesting refills on his albuterol inhalers. Discussed use of spacer. Chest x-ray showed no signs of pneumonia or pneumothorax. Vitals reviewed, nursing notes reviewed. Flu negative. After last albuterol treatment patient with scant and expiratory wheeze, cleared with a cough. Patient states he continues to feel better. - Vital Signs Vital signs: Temp Pulse Resp BP Pulse Ox 98.2 F 70 20 120/70 100 08/23/18 16:22 08/23/18 16:22 08/23/18 16:22 08/23/18 16:22 08/23/18 16:22 Discharge - Discharge Clinical Impression: Bronchospasm Upper respiratory infection Qualifiers: URI type: unspecified viral URI Qualified Code(s): J06.9 - Acute upper respiratory infection, unspecified Condition: Stable Disposition: HOME, SELF-CARE Instructions: Upper Respiratory Illness ([facility]), Viral Syndrome ([facility]) Prescriptions: Benzonatate [Tessalon Perles 100 mg Capsule] 100 mg PO Q8HP PRN #40 capsule PRN Reason: Albuterol Sulfate [Proair HFA Inhalation Aerosol 8.5 gm MDI] 2 puff IH Q4H PRN # 1 mdi PRN Reason: Mometasone Furoate [Nasonex] 1 spray NS Q12 #1 spray.pump Prednisone [Deltasone 20 mg Tablet] 3 tab PO DAILY 5 Days tablet
--- NOTE | 2018-08-23 15:31 | RADIOLOGY REPORT (SQ) ---
EXAM DESCRIPTION: CHEST 2 VIEWS COMPLETED DATE/TIME: 08/23/2018 3:22 pm REASON FOR STUDY: SOB COMPARISON: 02/05/2018 EXAM PARAMETERS: NUMBER OF VIEWS: two views TECHNIQUE: Digital Frontal and Lateral radiographic views of the chest acquired. RADIATION DOSE: NA LIMITATIONS: none FINDINGS: LUNGS AND PLEURA: No opacities, masses or pneumothorax. No pleural effusion. MEDIASTINUM AND HILAR STRUCTURES: No masses or contour abnormalities. HEART AND VASCULAR STRUCTURES: Heart normal size. No evidence for failure. BONES: No acute findings. HARDWARE: None in the chest. OTHER: No other significant finding. IMPRESSION: No acute abnormality of the lungs. No focal airspace disease. TECHNICAL DOCUMENTATION: JOB ID: [id number] [employer]- All Rights Reserved Reading location - IP/workstation name: [email or web address]
[2018-08-23] MEDS ORDERED: ALBUTEROL SULFATE 0.083% NEB 2.5 MG/3 ML AMPUL NEB ONE (15:46)
[2018-08-23 16:22] VITALS: BP 120/70
== END 2018-08-23 16:22 | disposition home or self-care (01) ==
LOC: ER 11:22
DX: J98.01 Acute bronchospasm (principal); J06.9 Acute upper respiratory infection, unspecified; R68.89 Other general symptoms and signs; I10 Essential (primary) hypertension
CPT/HCPCS: 94640 ×2; 99284; 87804; 71046; J7512; J7620

== ENCOUNTER 2019-11-13 16:58 | Emergency (ER) | payer OTHER ==
[2019-11-13 18:05] VITALS: BP 134/89
--- NOTE | 2019-11-13 18:54 | ER Document Report ---
ED Respiratory Problem - General Chief Complaint: Shortness Of Breath Stated Complaint: SHORTNESS OF BREATH Time Seen by Provider: 11/13/19 18:49 Mode of Arrival: Ambulatory Information source: Patient Notes: 54-year-old male presented to ED for cough cold congestion. He states he has been having some shortness of breath at times he does cough a lot. He does have asthma bronchitis and COPD. He states he is out of his albuterol inhaler. I have written him a prescription for his albuterol. He does not have any wheezes at this time. He states he does have Symbicort at home. TRAVEL OUTSIDE OF THE [place] IN LAST 30 DAYS: No - HPI Patient complains to provider of: Asthma, Cough, Short of breath Onset: This morning Duration: Gone now Initiating Event: URI Quality of pain: No pain Severity: None Pain Level: Denies Context: Hx asthma Cough: Nonproductive Sputum amount: None At home treatment: Bronchodilators, Inhaled steroids Associated symptoms: Congestion, Cough, PND, Runny nose, Sinus pain/pressure Similar symptoms previously: Yes Recently seen / treated by doctor: No - Related Data Allergies/Adverse Reactions: No Known Allergies Allergy (Verified 08/23/18 11:43) Past Medical History - General Information source: Patient - Social History Smoking Status: Former Smoker Frequency of alcohol use: Occasional Drug Abuse: None Lives with: Spouse/Significant other Family History: Reviewed & Not Pertinent, Malignancy Patient has suicidal ideation: No Patient has homicidal ideation: No - Past Medical History Cardiac Medical History: Reports: Hx Hypertension Pulmonary Medical History: Reports: Hx Asthma, Hx Bronchitis, Hx COPD EENT Medical History: Reports: None Neurological Medical History: Reports: None Endocrine Medical History: Reports: None Renal/ Medical History: Reports: None Malignancy Medical History: Reports None GI Medical History: Reports: None Musculoskeletal Medical History: Reports Hx Musculoskeletal Trauma Skin Medical History: Reports None Psychiatric Medical History: Reports: Hx Depression Traumatic Medical History: Reports: Hx Fractures - Clavicle Infectious Medical History: Reports: None Surgical Hx: Negative Past Surgical History: Reports: None - Immunizations Immunizations up to date: Yes Hx Diphtheria, Pertussis, Tetanus Vaccination: Yes Hx Pneumococcal Vaccination: 07/11/12 Review of Systems - Review of Systems Constitutional: Recent illness EENT: Nose congestion, Nose discharge, Sinus pressure, Sinus discharge Cardiovascular: No symptoms reported Respiratory: Cough, Short of breath, Wheezing Gastrointestinal: No symptoms reported Genitourinary: No symptoms reported Male Genitourinary: No symptoms reported Musculoskeletal: No symptoms reported Skin: No symptoms reported Hematologic/Lymphatic: No symptoms reported Neurological/Psychological: No symptoms reported -: Yes All other systems reviewed and negative Physical Exam - Vital signs Vitals: Temp Pulse Resp BP Pulse Ox 99.1 F 71 18 134/89 H 99 11/13/19 18:03 11/13/19 18:03 11/13/19 18:03 11/13/19 18:03 11/13/19 18:03 Interpretation: Normal - General General appearance: Appears well, Alert - HEENT Head: Normocephalic, Atraumatic Eyes: Normal Pupils: PERRL Ears: Normal External canal: Normal Tympanic membrane: Normal Sinus: Normal Nasal: Purulent discharge, Swelling Mouth/Lips: Normal Mucous membranes: Normal Pharynx: Post nasal drainage Neck: Normal - Respiratory Respiratory status: No respiratory distress Chest status: Nontender Breath sounds: Nonproductive cough, Wheezing Chest palpation: Normal - Cardiovascular Rhythm: Regular Heart sounds: Normal auscultation Murmur: No - Abdominal Inspection: Normal Distension: No distension Bowel sounds: Normal Tenderness: Nontender Organomegaly: No organomegaly - Back Back: Normal, Nontender - Extremities General upper extremity: Normal inspection, Nontender, Normal color, Normal ROM, Normal temperature General lower extremity: Normal inspection, Nontender, Normal color, Normal ROM, Normal temperature, Normal weight bearing. No: Kylie's sign - Neurological Neuro grossly intact: Yes Cognition: Normal Orientation: AAOx4 Harshaw Coma Scale Eye Opening: Spontaneous Harshaw Coma Scale Verbal: Oriented Harshaw Coma Scale Motor: Obeys Commands Amari Coma Scale Total: 15 Speech: Normal Motor strength normal: LUE, RUE, LLE, RLE Sensory: Normal - Psychological Associated symptoms: Normal affect, Normal mood - Skin Skin Temperature: Warm Skin Moisture: Dry Skin Color: Normal Course - Re-evaluation Re-evalutation: 11/13/19 19:01 States he feels much better he will does not need anything except for a refill on his albuterol now. He states he took a hit on his Symbicort and had some caffeine and he is not short of breath or coughing anymore. He states he is no longer wheezing but he does need a refill. I have written him a prescription for his albuterol and have discharged him home as his lungs are clear and he is in no discomfort at this time. - Vital Signs Vital signs: Temp Pulse Resp BP Pulse Ox 99.1 F 71 18 134/89 H 99 11/13/19 18:03 11/13/19 18:03 11/13/19 18:03 11/13/19 18:03 11/13/19 18:03 Discharge - Discharge Clinical Impression: Upper respiratory infection Qualifiers: URI type: unspecified viral URI Qualified Code(s): J06.9 - Acute upper respiratory infection, unspecified Condition: Stable Disposition: HOME, SELF-CARE Additional Instructions: UPPER RESPIRATORY ILLNESS: You have a viral infection of the respiratory passages -- a "cold." This common infection causes nasal congestion, drainage, and often sore throat and cough. It is highly contagious. The disease usually lasts about 10 to 14 days. There is no "cure" for the viral infection -- it must run its course. If there is a complication, such as bacterial infection in the nose, sinuses, middle ear, or bronchial tubes, antibiotics may be required. The antibiotics won't affect the virus. Drink plenty of fluids. A humidifier may help. An expectorant medication or decongestant may make you more comfortable. Use acetaminophen or ibuprofen for fever or aches. See the doctor if fever persists over two days, if there is any significant worsening of your symptoms, or if you simply fail to improve as expected. BRONCHOSPASM: You have tightness in the bronchial tubes, called bronchospasm. This often occurs with bronchial infections. Allergies, inhaled chemicals, and polluted or cold air can also provoke bronchospasm. It's more likely in patients with asthma in the family. Emergency treatment of bronchospasm may include adrenaline shots or bronchodilator aerosol. You may feel lightheaded and have a rapid pulse for an hour or two. Rest and get plenty of fluids. At home, we'll treat you with a bronchodilator inhaler. Antibiotics and corticosteroids may be required for some patients. Until you recover, avoid chemical fumes, dusts, pollens, and exercising in very cold or dry air. If you smoke, stop now!! If you develop a fever, increased wheezing, chest pain, or severe shortness of breath, you should contact the doctor immediately. You have been recommended treatment with Coricidin HP. These are all ndsg-ryi-pbpwtgb medications for cough cold congestion. Y You could also use Flonase which is yhpe-pfz-kbfucje 1 spray each nostril twice a day. You could also use salt soda solution gargles. These will help to remove the drainage from the back your throat. Chloraseptic spray was hnmq-yfa-jgfrosc that will al so help with your sore throat. Salt and soda solution gargle 1 quart of water 1 tablespoon of salt 1 teaspoon of baking soda Mixed 3 ingredients together and boil for 1 minute Placed in a covered quart jar Use 1/2 ounce of cold solution to gargle 3 times a day USE OF ACETAMINOPHEN (Tylenol): Acetaminophen may be taken for pain relief or fever control. It's much safer than aspirin, offering a wider range of "safe" dosages. It is safe during . Some brand names are Tylenol, Panadol, Datril, Anacin 3, Tempra, and Liquiprin. Acetaminophen can be repeated every four hours. The following are maximum recommended dosages: >89 pounds or adults 650 mg to 900 mg Acetaminophen can be repeated every four hours. Maximum dose not to exceed 4000 mg a day. Bronchodilators You have received a prescription for a bronchodilator -- a medication which stimulates the airways in the lung to dilate. This improves the flow of air in asthma, bronchitis, and emphysema. These medicines have some similarity to adrenaline, and can cause similar side effects: shakiness, racing heart, and a sense of nervousness. These side effects decrease after you've taken the medicine a day or two. Contact your doctor if these side effects are severe. FOLLOW-UP CARE: If you have been referred to a physician for follow-up care, call the physician s office for an appointment as you were instructed or within the next two days. If you experience worsening or a significant change in your symptoms, notify the physician immediately or return to the Emergency Department at any time for re-evaluation. Prescriptions: Albuterol Sulfate [Proair HFA Inhalation Aerosol 8.5 gm MDI] 2 puff IH Q4H PRN #1 mdi PRN Reason: Forms: Elevated Blood Pressure
== END 2019-11-13 19:04 | disposition home or self-care (01) ==
LOC: ER 16:58
DX: J06.9 Acute upper respiratory infection, unspecified (principal); R06.02 Shortness of breath; R05 Cough; R09.81 Nasal congestion; J44.9 Chronic obstructive pulmonary disease, unspecified; R09.82 Postnasal drip; R09.89 Other specified symptoms and signs involving the circulatory and respiratory systems; R51 Headache; Z87.891 Personal history of nicotine dependence; I10 Essential (primary) hypertension

== ENCOUNTER 2020-03-19 10:45 | Emergency (ER) | payer OTHER ==
[2020-03-19 10:56] VITALS: BP 137/87
--- NOTE | 2020-03-19 11:05 | ER Document Report ---
ED General - General Chief Complaint: Shortness Of Breath Stated Complaint: SHORTNESS OF BREATH Time Seen by Provider: 03/19/20 10:56 Primary Care Provider: [facility] [Primary Care Provider] - Follow up as needed Notes: With history of COPD and asthma and intermittent ongoing smoking presents with cough and shortness of breath with wheezing for last couple days. The cough is only when he takes a deep breath, is nonproductive and no different from baseline. No fever no chills no outpatient COVID-19 testing He has a history of noncompliance. I actually asked him to use his inhaler and he exhibited poor inhaler technique almost getting out of in his lungs he does admit to smoking last week. TRAVEL OUTSIDE OF THE [place] IN LAST 30 DAYS: No - Related Data Allergies/Adverse Reactions: No Known Allergies Allergy (Verified 11/13/19 18:50) Past Medical History - General Information source: Patient - Social History Smoking Status: Current Some Day Smoker Family History: Reviewed & Not Pertinent, Malignancy - Past Medical History Cardiac Medical History: Reports: Hx Hypertension Pulmonary Medical History: Reports: Hx Asthma, Hx Bronchitis, Hx COPD Musculoskeletal Medical History: Reports Hx Musculoskeletal Trauma Psychiatric Medical History: Reports: Hx Depression Traumatic Medical History: Reports: Hx Fractures - Clavicle - Immunizations Immunizations up to date: Yes Hx Diphtheria, Pertussis, Tetanus Vaccination: Yes Hx Pneumococcal Vaccination: 07/11/12 Review of Systems - Review of Systems Notes: REVIEW OF SYSTEMS GEN: Denies fever, chills, weight loss ENT: Denies sore throat, nasal discharge, ear pain EYES: Denies blurry vision, eye pain, discharge CV: Denies chest pain, palpitations, edema RESP: Cough shortness of breath GI: Denies abdominal pain, nausea, vomiting, diarrhea MSK: Denies joint pain/swelling, edema, SKIN: Denies rash, skin lesions LYMPH: Denies swollen glands/lymph nodes NEURO: Denies headache, focal weakness or numbness, dizziness PSYCH: Denies depression, suicidal or homicidal ideation PHYSICAL EXAMINATION General: No acute distress, well-nourished Head: Atraumatic, normocephalic ENT: Mouth normal, oropharynx moist, no exudates or tonsillar enlargement Eyes: Conjunctiva normal, pupils equal, lids normal Neck: No JVD, supple, no guarding CVS: Normal rate, regular rhythm, no murmurs Resp: No resp distress, equal breath sounds bilaterally, and expiratory wheezes bilaterally with minimal prolonged expiratory phase no distress and no accessory muscle use GI: Nondistended, soft, no tenderness to palpation, no rebound or guarding Ext: No deformities, no edema, normal range of motion in upper and lower ext Back: No CVA or midline TTP Skin: No rash, warm Lymphatic: No lymphadeopathy noted Neuro: Awake, alert. Face symmetric. GCS 15. Physical Exam - Vital signs Vitals: Temp Pulse Resp BP Pulse Ox 98.9 F 79 14 137/87 H 97 03/19/20 10:54 03/19/20 10:54 03/19/20 10:54 03/19/20 10:54 03/19/20 10:54 Course - Re-evaluation Re-evalutation: 03/19/20 11:07 Mild asthma/COPD exacerbation in setting of smoking and improper inhaler use I sat at the bedside with the patient and taught him how to use his inha ler/spacer properly and will plan to refill it as well as do a 5-day steroid burst. He can get outpatient COVID testing, but has no signs of pneumonia at this time His vitals are normal I have discussed with the patient there likely diagnosis, aftercare plan, follow-up plans and my usual and customary return precautions. They verbalized understanding of this. - Vital Signs Vital signs: Temp Pulse Resp BP Pulse Ox 98.9 F 79 14 137/87 H 97 03/19/20 10:54 03/19/20 10:54 03/19/20 10:54 03/19/20 10:54 03/19/20 10:54 Discharge - Discharge Clinical Impression: COPD with exacerbation Condition: Good Disposition: HOME, SELF-CARE Instructions: Chronic Obstructive Lung Disease ([facility]) Prescriptions: Albuterol Sulfate [Ventolin Hfa 8 gm Mdi] 2 puff IH Q4HP PRN #1 inhaler PRN Reason: Prednisone [Deltasone 20 mg Tablet] 40 mg PO DAILY #10 tablet [facility]errals: [facility] [Primary Care [facility]] - Follow up as needed
== END 2020-03-19 11:19 | disposition home or self-care (01) ==
LOC: ER 10:45
DX: J44.1 Chronic obstructive pulmonary disease with (acute) exacerbation (principal); J45.901 Unspecified asthma with (acute) exacerbation; R06.02 Shortness of breath; R05 Cough; F17.200 Nicotine dependence, unspecified, uncomplicated; I10 Essential (primary) hypertension
CPT/HCPCS: 99284

== ENCOUNTER 2020-04-01 12:37 | Emergency (ER) | payer OTHER ==
[2020-04-01] MEDS ORDERED: ONDANSETRON HCL INJ/PF 4 MG/2 ML SDV IV ONE (13:00)
[2020-04-01] MEDS ORDERED: NORMAL SALINE 1000 ML 1,000 ML IV PRN (13:00)
--- NOTE | 2020-04-01 13:02 | ER Document Report ---
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 IN LAST 30 DAYS: No - Related Data Allergies/Adverse Reactions: No Known Allergies Allergy (Verified 04/01/20 12:58) Past Medical History - Social History Family history: CAD, CVA, DM, Hyperlipidemia, Hypertension, Malignancy - Past Medical History Cardiac Medical History: Reports: Hx Hypertension Pulmonary Medical History: Reports: Hx Asthma, Hx Bronchitis, Hx COPD Musculoskeltal Medical History: Reports Hx Musculoskeletal Trauma Psychiatric Medical History: Reports: Hx Depression Traumatic Medical History: Reports: Hx Fractures - Clavicle - Immunizations Immunizations up to date: Yes Hx Diphtheria, Pertussis, Tetanus Vaccination: Yes Physical Exam - Vital signs Vitals: Temp Pulse Resp BP Pulse Ox 98.5 F 77 16 126/83 H 99 04/01/20 12:41 04/01/20 12:41 04/01/20 12:41 04/01/20 12:41 04/01/20 12:41 Course - Vital Signs Vital signs: Temp Pulse Resp BP Pulse Ox 98.5 F 77 16 126/83 H 99 04/01/20 12:41 04/01/20 12:41 04/01/20 12:41 04/01/20 12:41 04/01/20 12:41 Doctor's Discharge - Discharge Referrals: [facility] [Primary Care Provider] - Follow up as needed
--- NOTE | 2020-04-01 13:21 | EKG REPORT ---
SEVERITY:- OTHERWISE NORMAL ECG - SINUS RHYTHM RIGHT AXIS DEVIATION : Confirmed by: Robert Harry 01-Apr-2020 13:20:44
[2020-04-01 13:38] LABS: APPEARANCE,URINE CLEAR; BILIRUBIN,URINE NEGATIVE (NEGATIVE); COLOR,URINE YELLOW; GLUCOSE, URINE 50 mg/dL (NEGATIVE); KETONES,URINE NEGATIVE (NEGATIVE); LEUKOCYTE ESTERASE,URINE NEGATIVE (NEGATIVE); NITRITE,URINE NEGATIVE (NEGATIVE); PROTEIN,URINE NEGATIVE (NEGATIVE); URINE SPECIFIC GRAVITY 1.026
[2020-04-01 13:40] LABS: ABSOLUTE BASOPHILS # (AUTO) 0.1 10^3/uL (0.0-0.2); ABSOLUTE EOSINOPHILS # (AUTO) 0.2 10^3/uL (0.0-0.6); ABSOLUTE LYMPHOCYTES (AUTO) 2.3 10^3/uL (0.5-4.7); ABSOLUTE MONOCYTES (AUTO) 0.8 10^3/uL (0.1-1.4); ABSOLUTE NEUT (AUTO) 3.3 10^3/uL (1.7-8.2); BASOPHILS % (AUTO) 0.9 % (0-2); EOSINOPHILS % (AUTO) 2.5 % (0-6); HEMATOCRIT 53.2 % (37.9-51.0); HEMOGLOBIN 18.1 g/dL (13.5-17.0); LYMPHOCYTES % (AUTO) 34.4 % (13-45); MEAN CORPUSCULAR HEMOGLOBIN 29.8 pg (27.0-33.4); MEAN CORPUSCULAR HGB CONC 34.1 g/dL (32.0-36.0); MEAN CORPUSCULAR VOLUME 87 fl (80-97); MONOCYTES % (AUTO) 11.9 % (3-13); PLATELET COUNT 388 10^3/uL (150-450); RED BLOOD COUNT 6.08 10^6/uL (4.35-5.55); RED CELL DISTRIBUTION WIDTH 13.2 % (11.5-14.0); SEGMENTED NEUTROPHILS % (AUTO) 50.3 % (42-78); TOTAL CELLS COUNTED % (AUTO) 100 %; WHITE BLOOD COUNT 6.6 10^3/uL (4.0-10.5)
[2020-04-01 16:49] LABS: ALBUMIN 3.6 g/dL (3.5-5.0); ALKALINE PHOSPHATASE 53 U/L (38-126); ANION GAP 7 (5-19); ASPARTATE AMINO TRANSFERASE 19 U/L (17-59); BILIRUBIN,TOTAL 0.6 mg/dL (0.2-1.3); BLOOD UREA NITROGEN 13 mg/dL (7-20); CALCIUM 9.4 mg/dL (8.4-10.2); CARBON DIOXIDE 28 mmol/L (22-30); CHLORIDE 98 mmol/L (98-107); GLUCOSE 88 mg/dL (75-110); POTASSIUM 4.1 mmol/L (3.6-5.0); TOTAL PROTEIN 6.7 g/dL (6.3-8.2)
--- NOTE | 2020-04-01 16:56 | ER Document Report ---
ED General - General Chief Complaint: Abdominal Pain Stated Complaint: ABDOMINAL CRAMPING Time Seen by Provider: 04/01/20 12:59 Primary Care Provider: [facility] [Primary Care Provider] - Follow up as needed Mode of Arrival: Ambulatory Information source: Patient TRAVEL OUTSIDE OF THE [place] IN LAST 30 DAYS: No - HPI Notes: Patient comes in clinic abdominal pain. He states he is had abdominal pain for 4 to 5 days. He states it is severe and makes him "bend over". It is a sharp pain. He states is mainly in the middle of his abdomen and radiates from the top of the abdomen to the bottom. He has had no stool for 4 to 5 days but he states that is because he is not eating due to decreased appetite. He denies any problems with urination no vomiting. He has had no fever sweats or chills. No previous history of abdominal surgeries. The pain is been intermittent and nothing appears to make it better or worse. 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 - Social History Smoking Status: Former Smoker Frequency of alcohol use: None Drug Abuse: None Family History: Reviewed & Not Pertinent, Malignancy Patient has homicidal ideation: No - Past Medical History Cardiac Medical History: Reports: Hx Hypertension Pulmonary Medical History: Reports: Hx Asthma, Hx Bronchitis, Hx COPD Musculoskeletal Medical History: Reports Hx Musculoskeletal Trauma Psychiatric Medical History: Reports: Hx Depression Traumatic Medical History: Reports: Hx Fractures - Clavicle - Immunizations Immunizations up to date: Yes Hx Diphtheria, Pertussis, Tetanus Vaccination: Yes Hx Pneumococcal Vaccination: 07/11/12 Review of Systems - Review of Systems Constitutional: denies: Chills, Fever Cardiovascular: denies: Chest pain, Palpitations Respiratory: denies: Cough, Short of breath -: Yes All other systems reviewed and negative Physical Exam - Vital signs Vitals: Temp Pulse Resp BP Pulse Ox 98.5 F 77 16 126/83 H 99 04/01/20 12:41 04/01/20 12:41 04/01/20 12:41 04/01/20 12:41 04/01/20 12:41 Interpretation: Normal - General General appearance: Appears well, Alert - HEENT Head: Normocephalic, Atraumatic Eyes: Normal Pupils: PERRL - Respiratory Respiratory status: No respiratory distress Chest status: Nontender Breath sounds: Normal Chest palpation: Normal - Cardiovascular Rhythm: Regular Heart sounds: Normal auscultation Murmur: No - Abdominal Inspection: Normal Distension: No distension Bowel sounds: Normal Tenderness: Tender - Abdomen is diffusely tender with voluntary guarding. Organomegaly: No organomegaly - Back Back: Normal, Nontender - Extremities General upper extremity: Normal inspection, Nontender, Normal color, Normal ROM, Normal temperature General lower extremity: Normal inspection, Nontender, Normal color, Normal ROM, Normal temperature, Normal weight bearing. No: Kylie's sign - Neurological Neuro grossly intact: Yes Cognition: Normal Orientation: AAOx4 [place] Coma Scale Eye Opening: Spontaneous [place] Coma Scale Verbal: Oriented Amari Coma Scale Motor: Obeys Commands Amari Coma Scale Total: 15 Speech: Normal Motor strength normal: LUE, RUE, LLE, RLE Sensory: Normal - Psychological Associated symptoms: Normal affect, Normal mood - Skin Skin Temperature: Warm Skin Moisture: Dry Skin Color: Normal Course - Re-evaluation Re-evalutation: 04/01/20 18:12 Patient presents with diffuse abdominal pain for 4 to 5 days. Laboratories are essentially unremarkable. CT scan shows some evidence of chronic bladder obstruction. It appears be secondary to I hypertrophied prostate. No evidence of urinary tract infection. No evidence of anything that require antibiotics. I am going to discharge the patient home with pain medication and have him follow-up with urology. - Vital Signs Vital signs: Temp Pulse Resp BP Pulse Ox 98.5 F 77 16 126/83 H 99 04/01/20 12:59 04/01/20 12:41 04/01/20 12:41 04/01/20 12:41 04/01/20 12:41 - Laboratory Result Diagrams: 04/01/20 13:15 04/01/20 13:15 Laboratory results interpreted by me: 04/01/20 04/01/20 04/01/20 13:15 13:15 13:25 RBC 6.08 H Hgb 18.1 H Hct 53.2 H Sodium 133.2 L Urine Glucose (UA) 50 H Urine Blood SMALL H Urine Urobilinogen 2.0 H - Diagnostic Test Radiology reviewed: Image reviewed, Reports reviewed Discharge - Discharge Clinical Impression: Prostatic hypertrophy Abdominal pain Qualifiers: Abdominal location: generalized Qualified Code(s): R10.84 - Generalized abdominal pain Condition: Stable Disposition: HOME, SELF-CARE Instructions: Abdominal Pain ([facility]), Oral Narcotic Medication ([facility]) Additional Instructions: Please call a urologist, such as Dr. Hines, first thing in the am to arrange follow up Prescriptions: Hydrocodone/Acetaminophen [[place] 5-325 mg Tablet] 1 tab PO Q6 PRN 3 Days #12 tablet PRN Reason: Forms: Return to Work Referrals: [facility] [Primary Care [facility]] - Follow up as needed TASNEEM HINES MD [NO LOCAL MD] - Follow up in 3-5 days
--- NOTE | 2020-04-01 17:53 | RADIOLOGY REPORT (SQ) ---
EXAM DESCRIPTION: CT ABD/PELVIS WITH IV ORAL IMAGES COMPLETED DATE/TIME: 04/01/2020 4:25 pm REASON FOR STUDY: mid abdominal pain COMPARISON: None. TECHNIQUE: CT scan of the abdomen and pelvis performed using helical scanning technique with dynamic intravenous contrast injection. No oral contrast. Images reviewed with lung, soft tissue, and bone windows. Reconstructed coronal and sagittal MPR images reviewed. Delayed images for evaluation of the urinary system also acquired. All images stored on PACS. All CT scanners at this facility use dose modulation, iterative reconstruction, and/or weight based d osing when appropriate to reduce radiation dose to as low as reasonably achievable (ALARA). [facility]: Dose Right [facility]: CareDose [facility]: Dose Right [facility]: Teradose 4D [facility]: [place] CONTRAST TYPE AND DOSE: 70 mL Omnipaque 350- low osmolar. RENAL FUNCTION: GFR > 60. RADIATION DOSE: CT Rad equipment meets quality standard of care and radiation dose reduction techniq ues were employed. CTDIvol: 4.8 - 4.9 mGy. DLP: 505 mGy-cm.. LIMITATIONS: None. FINDINGS: LOWER CHEST: No significant findings. No nodules or infiltrates. LIVER: Liver has normal size and contour. There is mild diffuse hepatic steatosis. No focal hepatic mass. Hepatic and portal veins are patent. No biliary ductal dilation. SPLEEN: Normal size. No focal lesions. PANCREAS: No masses. No significant calcifications. No adjacent inflammation or peripancreatic fluid collections. Pancreatic duct not dilated. GALLBLADDER: No identified stones by CT criteria. No inflammatory changes to suggest cholecystitis. ADRENAL GLANDS: No significant masses or asymmetry. RIGHT KIDNEY AND URETER: No solid masses. No significant calcifications. No hydronephrosis or hyd roureter. LEFT KIDNEY AND URETER: No solid masses. No significant calcifications. No hydronephrosis or hydr oureter. AORTA AND VESSELS: No aneurysm. No dissection. Renal arteries, SMA, celiac without stenosis. RETROPERITONEUM: No retroperitoneal adenopathy, hemorrhage or masses. BOWEL AND PERITONEAL CAVITY: No masses or inflammatory changes. No free fluid or peritoneal masses. APPENDIX: Normal. PELVIS: The prostate gland is enlarged measuring 4.9 x 4 cm. There is mass effect on the urinary cruz dder. Urinary bladder is not well-distended, however despite underdistention, the bladder wall appea rs diffusely thickened measuring up to 9 mm thickness. No intraluminal bladder mass or debris. No p elvic adenopathy or mass. ABDOMINAL WALL: No masses. No hernias. BONES: No significant or acute findings. OTHER: No other significant finding. IMPRESSION: 1. Diffusely thickened urinary bladder which can be seen with acute or chronic cystitis or chronic bl adder outlet obstruction. 2. Prostatomegaly with mild mass effect on the urinary bladder. 3. Appendix is normal. TECHNICAL DOCUMENTATION: JOB ID: [id number] Quality ID # [id number]: Final reports with documentation of one or more dose reduction techniques (e.g., Au tomated exposure control, adjustment of the mA and/or kV according to patient size, use of iterative reconstruction technique) 2010 [employer]- All Rights Reserved Reading location - IP/workstation name: [id number]
[2020-04-01 18:50] VITALS: BP 140/83
== END 2020-04-01 18:53 | disposition home or self-care (01) ==
LOC: ER 12:37
DX: N40.0 Benign prostatic hyperplasia without lower urinary tract symptoms (principal); R10.84 Generalized abdominal pain; R63.0 Anorexia; Z87.891 Personal history of nicotine dependence; I10 Essential (primary) hypertension; J44.9 Chronic obstructive pulmonary disease, unspecified
CPT/HCPCS: 93005; 99284; 96361; 96374; 36415; 83690; 85025; 80053; 81001; 84484; 74177; 93010; J2405; J7030

== ENCOUNTER 2020-04-03 12:39 | Emergency (ER) | payer OTHER ==
[2020-04-03 14:14] LABS: ABSOLUTE EOSINOPHILS # (AUTO) 0.1 10^3/uL (0.0-0.6); ABSOLUTE LYMPHOCYTES (AUTO) 1.6 10^3/uL (0.5-4.7); ABSOLUTE MONOCYTES (AUTO) 0.5 10^3/uL (0.1-1.4); ABSOLUTE NEUT (AUTO) 3.2 10^3/uL (1.7-8.2); BASOPHILS % (AUTO) 0.9 % (0-2); EOSINOPHILS % (AUTO) 1.9 % (0-6); HEMATOCRIT 46.9 % (37.9-51.0); HEMOGLOBIN 16.7 g/dL (13.5-17.0); LYMPHOCYTES % (AUTO) 28.9 % (13-45); MEAN CORPUSCULAR HEMOGLOBIN 30.4 pg (27.0-33.4); MEAN CORPUSCULAR HGB CONC 35.5 g/dL (32.0-36.0); MEAN CORPUSCULAR VOLUME 86 fl (80-97); PLATELET COUNT 330 10^3/uL (150-450); RED BLOOD COUNT 5.48 10^6/uL (4.35-5.55); RED CELL DISTRIBUTION WIDTH 13.4 % (11.5-14.0); SEGMENTED NEUTROPHILS % (AUTO) 58.3 % (42-78); TOTAL CELLS COUNTED % (AUTO) 100 %; WHITE BLOOD COUNT 5.5 10^3/uL (4.0-10.5)
[2020-04-03 14:36] LABS: ALBUMIN 3.7 g/dL (3.5-5.0); ALKALINE PHOSPHATASE 49 U/L (38-126); ASPARTATE AMINO TRANSFERASE 18 U/L (17-59); BILIRUBIN,TOTAL 0.5 mg/dL (0.2-1.3); BLOOD UREA NITROGEN 10 mg/dL (7-20); CALCIUM 9.2 mg/dL (8.4-10.2); CREATINE KINASE 82 U/L (55-170); GLUCOSE 92 mg/dL (75-110); POTASSIUM 4.1 mmol/L (3.6-5.0); TOTAL PROTEIN 6.4 g/dL (6.3-8.2)
[2020-04-03 14:42] LABS: CARBON DIOXIDE 29 mmol/L (22-30); CHLORIDE 101 mmol/L (98-107)
[2020-04-03 14:44] LABS: ANION GAP 4 (5-19)
[2020-04-03 14:46] LABS: CREATINE KINASE MB 0.84 ng/mL (<4.55)
[2020-04-03 14:47] LABS: TROPONIN I < 0.012 ng/mL
--- NOTE | 2020-04-03 15:06 | ER Document Report ---
ED General - General Chief Complaint: Chest Pain Stated Complaint: CHEST PAIN [facility]: [facility] [[facility] Care [facility]] - Follow up as needed Notes: Patient is a 54-year-old -[place] male with a history of hypertrophy pr ostate with minimal bladder outlet obstruction who presents to the emergency department with a chief complaint of adverse reaction to the pain medication he was given. The patient reports he has a history of COPD. He smokes every now and then but has largely quit from prior. He uses a COPD medications regularly. He states he was seen here recently and given [place] for pain secondary to hypertrophied prostate and bladder outlet obstruction. He has been referred to urology and [facility]. He denies any worsening of his urological symptoms but states that when he takes the hydrocodone he notices some slight pressure in the chest. He states this seems to happen to him whenever he has had pain medication in the past. He also states that he read that it could worsen his COPD which concerned him. He denies any chest pain here now. States the episodes were fleeting. Not associated with shortness of breath. No lower extremity pain or swelling. No cough or hemoptysis. No history of CAD. Patient reports moderate family history of prostate disease. TRAVEL OUTSIDE OF THE [place] IN LAST 30 DAYS: No - Related Data Allergies/Adverse Reactions: No Known Allergies Allergy (Verified 04/01/20 12:58) Past Medical History - Social History Smoking Status: Never Smoker Family History: Reviewed & Not Pertinent, Malignancy - Past Medical History Cardiac Medical History: Reports: Hx Hypertension Pulmonary Medical History: Reports: Hx Asthma, Hx Bronchitis, Hx COPD Musculoskeletal Medical History: Reports Hx Musculoskeletal Trauma Psychiatric Medical History: Reports: Hx Depression Traumatic Medical History: Reports: Hx Fractures - Clavicle - Immunizations Immunizations up to date: Yes Hx Diphtheria, Pertussis, Tetanus Vaccination: Yes Hx Pneumococcal Vaccination: 07/11/12 Review of Systems - Review of Systems Cardiovascular: Chest pain -: Yes All other systems reviewed and negative Physical Exam - Vital signs Vitals: Temp Pulse Resp BP Pulse Ox 99.4 F 75 20 135/87 H 100 04/03/20 13:01 04/03/20 13:01 04/03/20 13:01 04/03/20 13:01 04/03/20 13:01 - General General appearance: Appears well, Alert In distress: None - HEENT Head: Normocephalic, Atraumatic Eyes: Normal Pupils: PERRL Pharynx: Normal, Other - Patent airway Neck: Normal, Supple - Respiratory Respiratory status: No respiratory distress Chest status: Nontender Breath sounds: Normal Chest palpation: Normal - Cardiovascular Rhythm: Regular Heart sounds: Normal auscultation Pulses: Normal: Radial, Posterior tibial, Dorsalis pedis - Abdominal Inspection: Normal Distension: No distension Bowel sounds: Normal Tenderness: Nontender Organomegaly: No organomegaly - Extremities General upper extremity: Normal inspection, Nontender, Normal color, Normal ROM, Normal temperature General lower extremity: Normal inspection, Nontender, Normal color, Normal ROM, Normal temperature, Normal weight bearing. No: Kylie's sign - Neurological Neuro grossly intact: Yes Cognition: Normal Orientation: AAOx4 [place] Coma Scale Eye Opening: Spontaneous [place] Coma Scale Verbal: Oriented Amari Coma Scale Motor: Obeys Commands [place] Coma Scale Total: 15 Speech: Normal - Psychological Associated symptoms: Normal affect, Normal mood - Skin Skin Temperature: Warm Skin Moisture: Dry Skin Color: Normal Course - Re-evaluation Re-evalutation: 04/03/20 15:16 Patient with a history of adverse reactions to certain opioid medications. He states that he is tolerated Vicodin well in the past. Although the generics are similar and there may be a slight variance in the chemical construction of the pain medication based on manufacture could be causing this intolerance. Patient was also taking Tylenol at home which he states was helping as well. Given that he is supplementing with Tylenol [id number] we will change the medication to Vicoprofen to see if he tolerates this medicine better. He has no airway compromise. Troponin negative and EKG unchanged from prior. EKG today interpreted by ED attending shows a sinus rhythm at 75 bpm with normal intervals and elevated T waves in the lateral leads same as prior. He is asymptomatic here now. He will continue with previous plan to follow-up with urology. He will monitor his urinary output closely for any signs of worsening and return as needed for possible catheter placement and reevaluation. Advised to return here any ER immediately with any new, persistent or worsening symptoms. He verbalized understood and agreed. - Vital Signs Vital signs: Temp Pulse Resp BP Pulse Ox 99.4 F 75 20 135/87 H 100 04/03/20 13:01 04/03/20 13:01 04/03/20 13:01 04/03/20 13:01 04/03/20 13:01 - Laboratory Result Diagrams: 04/03/20 14:00 04/03/20 14:00 Laboratory results interpreted by me: 04/03/20 14:00 Sodium 134.2 L Anion Gap 4 L Discharge - Discharge Clinical Impression: adverse reaction Chest pain Qualifiers: Chest pain type: unspecified Qualified Code(s): R07.9 - Chest pain, unspecified Condition: Stable Disposition: HOME, SELF-CARE Instructions: Chest Pain of Unclear Cause ([facility]), Oral Narcotic Medication ([facility]) Additional Instructions: Your medication will be changed to Vicoprofen. You may take Tylenol per label instructions with this medication if needed. Please continue to monitor urinary output and follow-up with the urologist as soon as possible. Please return here or any ER immediately with any new, persistent or worsening symptoms. Prescriptions: Hydrocodone/Ibuprofen [Hydrocodone-Ibuprofen 7.5-200] 1 each PO Q6 PRN #12 tablet PRN Reason: [facility]errals: [facility] [[facility]] - Follow up as needed
[2020-04-03 15:17] VITALS: BP 128/71
--- NOTE | 2020-04-03 19:23 | EKG REPORT ---
SEVERITY:- ABNORMAL ECG - SINUS RHYTHM : Confirmed by: Robert Harry 03-Apr-2020 19:22:58
== END 2020-04-03 15:14 | disposition home or self-care (01) ==
LOC: ER 12:39
DX: R07.9 Chest pain, unspecified (principal); T40.2X5A Adverse effect of other opioids, initial encounter; J44.9 Chronic obstructive pulmonary disease, unspecified; I10 Essential (primary) hypertension
CPT/HCPCS: 36415; 80053; 82550; 82553; 84484; 85025; 93005; 93010; 99285

== ENCOUNTER 2020-09-05 13:40 | Emergency (ER) | payer OTHER ==
[2020-09-05] MEDS ORDERED: IPRATROPIUM/ALBUTEROL 0.5-2.5 MG/3 ML AMPUL NEB ONE (13:46)
[2020-09-05] MEDS ORDERED: ALBUTEROL SULFATE 0.083% NEB 2.5 MG/3 ML AMPUL NEB ONE (13:46)
--- NOTE | 2020-09-05 13:51 | ER Document Report ---
ED General - General Stated Complaint: RESPIRTORY DISTRESS Time Seen by Provider: 09/05/20 13:46 Primary Care Provider: [facility] [Primary Care Provider] - Follow up as needed Notes: 54-year-old male with asthma COPD not on home oxygen noncompliant with medications presents with "respiratory distress" with chest tightness shortness of breath and wheezing similar to past episodes of COPD onset about 4 hours ago. Does not smoke. He got 2 nebs and steroids from EMS went from 96 to 100% end- tidal waveform improved and now he feels much better. He has no current chest pain. He is not had any heart problems. He thinks this is because of his lack of ability to take his daily Symbicort, and running out of rescue inhalers. No sputum no fevers recent negative Covid testing. TRAVEL OUTSIDE OF THE [place] IN LAST 30 DAYS: No - Related Data Allergies/Adverse Reactions: No Known Allergies Allergy (Verified 04/01/20 12:58) Past Medical History - General Information source: Patient - Social History Smoking Status: Former Smoker Family History: Reviewed & Not Pertinent, Malignancy - Past Medical History Cardiac Medical History: Reports: Hx Hypertension Pulmonary Medical History: Reports: Hx Asthma, Hx Bronchitis, Hx COPD Musculoskeletal Medical History: Reports Hx Musculoskeletal Trauma Psychiatric Medical History: Reports: Hx Depression Traumatic Medical History: Reports: Hx Fractures - Clavicle - Immunizations Immunizations up to date: Yes Hx Diphtheria, Pertussis, Tetanus Vaccination: Yes Hx Pneumococcal Vaccination: 07/11/12 Review of Systems - Review of Systems Notes: REVIEW OF SYSTEMS GEN: Denies fever, chills, weight loss ENT: Denies sore throat, nasal discharge, ear pain EYES: Denies blurry vision, eye pain, discharge CV: Denies chest pain, palpitations, edema RESP: See HPI GI: Denies abdominal pain, nausea, vomiting, diarrhea MSK: Denies joint pain/swelling, edema, SKIN: Denies rash, skin lesions LYMPH: Denies swollen glands/lymph nodes NEURO: Denies headache, focal weakness or numbness, dizziness PSYCH: Denies depression, suicidal or homicidal ideation PHYSICAL EXAMINATION General: No acute distress, well-nourished Head: Atraumatic, normocephalic ENT: Mouth normal, oropharynx moist, no exudates or tonsillar enlargement Eyes: Conjunctiva normal, pupils equal, lids normal Neck: No JVD, supple, no guarding CVS: Normal rate, regular rhythm, no murmurs Resp: Scant end expiratory wheezing with slight prolonged expiratory phase, no tripoding or accessory muscle use appears comfortable in no distress GI: Nondistended, soft, no tenderness to palpation, no rebound or guarding Ext: No deformities, no edema, normal range of motion in upper and lower ext Back: No CVA or midline TTP Skin: No rash, warm Lymphatic: No lymphadeopathy noted Neuro: Awake, alert. Face symmetric. GCS 15. Physical Exam - Vital signs Vitals: Resp 25 H 09/05/20 13:40 Course - Re-evaluation Re-evalutation: improved COPD/asthma exacerbation No signs of cardiac disease or acute coronary syndrome Labs not needed We will do x-ray to rule out pneumonia/collapse, give 1 more neb and allow Solu- Medrol to work 09/05/20 16:46 X-ray clear. Patient is stable for discharge home given 5 days of prednisone asked to follow-up with primary care. Also refilled his home meds. I have discussed with the patient there likely diagnosis, aftercare plan, follow-up plans and my usual and customary return precautions. They verbalized understanding of this. - Vital Signs Vital signs: Temp Pulse Resp BP Pulse Ox 98.8 F 14 107/60 100 09/05/20 15:29 09/05/20 15:00 09/05/20 15:00 09/05/20 15:00 Discharge - Discharge Clinical Impression: Asthma exacerbation Qualifiers: Asthma severity: moderate Asthma persistence: persistent Qualified Code(s): J45.41 - Moderate persistent asthma with (acute) exacerbation Condition: Good Disposition: HOME, SELF-CARE Instructions: Chronic Obstructive Lung Disease ([facility]) Prescriptions: Albuterol Sulfate [Ventolin Hfa 8 gm Mdi] 2 puff IH Q4HP PRN #1 inhaler PRN Reason: Prednisone [Deltasone 20 mg Tablet] 40 mg PO DAILY #10 tablet Budesonide/Formoterol Fumarate [Symbicort Hfa 80-4.5 Mcg Inhaler 6.9 gm] 2 puff IH DAILY #1 inhaler [facility]errals: [facility] [Primary Care Provider] - Follow up as needed
--- NOTE | 2020-09-05 14:26 | RADIOLOGY REPORT (SQ) ---
EXAM DESCRIPTION: CHEST SINGLE VIEW IMAGES COMPLETED DATE/TIME: 09/05/2020 12:59 pm REASON FOR STUDY: COPD r/.o collapse COMPARISON: 05/30/2017 EXAM PARAMETERS: NUMBER OF VIEWS: One view. TECHNIQUE: Single frontal radiographic view of the chest acquired. RADIATION DOSE: NA LIMITATIONS: None. FINDINGS: LUNGS AND PLEURA: Lungs are hyperinflated. No focal consolidation or pleural effusion. N o pneumothorax. MEDIASTINUM AND HILAR STRUCTURES: No masses. Contour normal. HEART AND VASCULAR STRUCTURES: Heart normal in size. Normal vasculature. BONES: No acute findings. HARDWARE: None in the chest. OTHER: No other significant finding. IMPRESSION: No acute cardiopulmonary disease. Hyperinflated lungs which can be seen with obstructiv e lung disease. TECHNICAL DOCUMENTATION: JOB ID: [id number] 2010 [employer]- All Rights Reserved Reading location - IP/workstation name: [email or web address]
[2020-09-05 15:20] VITALS: BP 107/60
== END 2020-09-05 15:29 | disposition home or self-care (01) ==
LOC: ER 13:40
DX: J45.41 Moderate persistent asthma with (acute) exacerbation (principal); R06.03 Acute respiratory distress; I10 Essential (primary) hypertension; Z99.81 Dependence on supplemental oxygen
CPT/HCPCS: 94640; 99283; 71045; J7613

== ENCOUNTER 2020-09-05 16:31 | Observation (INO) | payer OTHER ==
--- NOTE | 2020-09-05 16:42 | ER Document Report ---
ED General - General Stated Complaint: SHORTNESS OF BREATH Time Seen by Provider: 09/05/20 16:34 Notes: 54-year-old male with asthma and COPD seen here about 2 hours ago for COPD flare got Solu-Medrol 3 nebs in the ED and was discharged with essentially normal work of breathing and saturations, apparently got home got in his house did not go to the pharmacy to merchandise pickup/receiving associate his meds, and the neighbor was called a few minutes later. He was hypoxic wheezing moving barely any air. EMS states he was combative and hypoxic and required sedation got magnesium steroids and multiple nebulizer treatments. He says "I do know what happened it just happened again. He denies using drugs or smoking cigarettes. Denies chest pain. TRAVEL OUTSIDE OF THE [place] IN LAST 30 DAYS: No - Related Data Allergies/Adverse Reactions: No Known Allergies Allergy (Verified 04/01/20 12:58) Past Medical History - General Information source: Patient - Social History Smoking Status: Former Smoker Family History: Reviewed & Not Pertinent, Malignancy - Past Medical History Cardiac Medical History: Reports: Hx Hypertension Pulmonary Medical History: Reports: Hx Asthma, Hx Bronchitis, Hx COPD Musculoskeletal Medical History: Reports Hx Musculoskeletal Trauma Psychiatric Medical History: Reports: Hx Depression Traumatic Medical History: Reports: Hx Fractures - Clavicle - Immunizations Immunizations up to date: Yes Hx Diphtheria, Pertussis, Tetanus Vaccination: Yes Hx Pneumococcal Vaccination: 07/11/12 Review of Systems - Review of Systems Notes: REVIEW OF SYSTEMS Acuity/shortness of breath PHYSICAL EXAMINATION General: Diaphoretic Head: Atraumatic, normocephalic ENT: Mouth normal, oropharynx moist, no exudates or tonsillar enlargement Eyes: Conjunctiva normal, pupils equal, lids normal Neck: No JVD, supple, no guarding CVS: Normal rate, regular rhythm, no murmurs Resp: Expiratory phase tachypneic biphasic wheezing GI: Nondistended, soft, no tenderness to palpation, no rebound or guarding Ext: No deformities, no edema, normal range of motion in upper and lower ext Back: No CVA or midline TTP Skin: No rash, warm Lymphatic: No lymphadeopathy noted Neuro: Awake, alert. Face symmetric. GCS 15. Physical Exam - Vital signs Vitals: Resp BP Pulse Ox 25 H 133/82 H 96 09/05/20 16:31 09/05/20 16:31 09/05/20 16:31 Course - Re-evaluation Re-evalutation: 09/05/20 16:41 Repeat visit for asthma/COPD I wonder if there was smoking or drugs involved because he was discharged in excellent condition and is now much worse We will expand differential get a BNP will not repeat x-ray since this was already done, will check basic labs placed on BiPAP for now. Is already gotten epi and magnesium. Will give a third neb. Should not need repeat steroids. Will Covid test. 09/05/20 17:31 Stable on BiPAP. Covid pending. Discussed with Elisabeth for admission Labs pending at the time of admission - Vital Signs Vital signs: Temp Pulse Resp BP Pulse Ox 98.8 F 31 H 120/78 100 09/05/20 16:52 09/05/20 17:01 09/05/20 17:00 09/05/20 17:01 - Laboratory Result Diagrams: 09/05/20 16:42 09/05/20 16:42 - Diagnostic Test Radiology reviewed: Image reviewed, Reports reviewed - Reviewed x-ray from earlier today Critical Care Note - Critical Care Note Total time excluding time spent on procedures (mins): 32 Comments: The above patient is critically ill. Not including procedures, but including d irect re-evaluations, speaking with patient and/or consultants, interpreting results, and documenting, I spent the total amount of minute listed listed above on critical care time Discharge - Discharge Clinical Impression: Reactive airway disease Qualifiers: Asthma severity: mild Asthma persistence: intermittent Asthma complication type: with acute exacerbation Qualified Code(s): J45.21 - Mild intermittent asthma with (acute) exacerbation Condition: Fair Disposition: ADMITTED INPATIENT Admitting Provider: Elisabeth (Hospitalist) Unit Admitted: [facility]
[2020-09-05] MEDS: ALBUTEROL SULFATE 0.083% NEB 2.5 MG/3 ML AMPUL NEB SCH ×2 (17:19→17:37)
[2020-09-05 17:35] LABS: ABSOLUTE BASOPHILS # (AUTO) 0.1 10^3/uL (0.0-0.2); ABSOLUTE LYMPHOCYTES (AUTO) 0.8 10^3/uL (0.5-4.7); ABSOLUTE MONOCYTES (AUTO) 0.3 10^3/uL (0.1-1.4); ABSOLUTE NEUT (AUTO) 9.4 10^3/uL (1.7-8.2); BASOPHILS % (AUTO) 0.5 % (0-2); EOSINOPHILS % (AUTO) 0.1 % (0-6); HEMOGLOBIN 15.4 g/dL (13.5-17.0); LYMPHOCYTES % (AUTO) 7.7 % (13-45); MEAN CORPUSCULAR HEMOGLOBIN 29.5 pg (27.0-33.4); MEAN CORPUSCULAR HGB CONC 34.2 g/dL (32.0-36.0); MEAN CORPUSCULAR VOLUME 86 fl (80-97); MONOCYTES % (AUTO) 2.6 % (3-13); PLATELET COUNT 324 10^3/uL (150-450); RED BLOOD COUNT 5.21 10^6/uL (4.35-5.55); RED CELL DISTRIBUTION WIDTH 13.3 % (11.5-14.0); SEGMENTED NEUTROPHILS % (AUTO) 89.1 % (42-78); TOTAL CELLS COUNTED % (AUTO) 100 %; WHITE BLOOD COUNT 10.5 10^3/uL (4.0-10.5)
[2020-09-05 17:51] LABS: ANION GAP 14 (5-19); BLOOD UREA NITROGEN 11 mg/dL (7-20); CARBON DIOXIDE 21 mmol/L (22-30); CHLORIDE 103 mmol/L (98-107); GLUCOSE 128 mg/dL (75-110); POTASSIUM 3.4 mmol/L (3.6-5.0)
[2020-09-05] MEDS ORDERED: LEVALBUTEROL HCL NEB 1.25 MG/3 ML AMPUL NEB PRN (18:16)
[2020-09-05] MEDS ORDERED: MAG HYDROX/AL HYDROX/SIMETH SUSP 30 ML UDCUP PO PRN (18:16)
[2020-09-05] MEDS ORDERED: ONDANSETRON 4 MG TAB.RAPDIS PO PRN (18:16)
[2020-09-05] MEDS ORDERED: MAGNESIUM HYDROXIDE SUSP 30 ML UDCUP PO PRN (18:16)
[2020-09-05] MEDS ORDERED: ACETAMINOPHEN 325 MG TABLET PO PRN (18:16)
--- NOTE | 2020-09-05 18:43 | PDOC H&P ---
History of Present Illness Admission Date/PCP: 09/05/20 17:23 HAILY NOGUEIRA MD Patient complains of: Shortness of breath History of Present Illness: MEGAN KRISHNAMURTHY is a 54 year old male who was discharged from the emergency department 1 hour before returning. He initially presented short of breath. It was felt to be an exacerbation of asthma/COPD. He responded to steroids. Chest x-ray showed no pneumonia and the patient was discharged. He states that when he got home he became acutely short of breath. He called rescue and was brought back to the emergency department. This time he required BiPAP to maintain oxygen saturation over 90%. Past Medical History Cardiac Medical History: Reports: Hypertension Pulmonary Medical History: Reports: Asthma, Bronchitis, Chronic Obstructive Pulm onary Disease (COPD) Psychiatric Medical History: Reports: Depression Past Surgical History Past Surgical History: Reports: None Social History Information Source: Patient Lives with: Alone Smoking Status: Former Smoker Electronic Cigarette use?: No Frequency of Alcohol Use: Rare Hx Recreational Drug Use: No Hx Prescription Drug Abuse: No - Advance Directive Resuscitation Status: Full Code Surrogate healthcare decision maker:: The patient did not provide this information Family History Family History: Reviewed & Not Pertinent, Malignancy Parental Family History Reviewed: Yes Children Family History Reviewed: NA Sibling(s) Family History Reviewed.: Yes Medication/Allergy Home Medications: Budesonide/Formoterol Fumarate [Symbicort HFA 160-4.5 mcg Inhaler 6 gm] 1 puff DAILY 05/30/17 Prednisone [Deltasone 20 mg Tablet] 3 tab PO DAILY 5 Days tablet 05/30/17 Albuterol Sulfate [Ventolin 0.083% Neb 2.5 mg/3 mL Ampul] 2.5 mg NEB Q3HP PRN #25 vial 01/30/18 Budesonide/Formoterol Fumarate [Symbicort Hfa 160-4.5 Mcg Inhaler 6 gm] 2 puff IH Q12 #1 inhaler 01/30/18 Nebulizer and Compressor [Husser Choice Nebulizer] 1 each MC Q4HP PRN #1 each 01/30/18 Prednisone [Deltasone 10 mg Tablet] 10 mg PO ASDIR PRN #21 tablet 01/30/18 Cetirizine HCl [Zyrtec 10 mg Tablet] 1 tab PO DAILY #30 tablet 02/05/18 Prednisone 60 mg PO DAILY #9 tablet 02/05/18 Albuterol Sulfate [Proair HFA Inhalation Aerosol 8.5 gm MDI] 2 puff IH Q4H PRN #1 mdi 08/23/18 Benzonatate [Tessalon Perles 100 mg Capsule] 100 mg PO Q8HP PRN #40 capsule 08/23/18 Mometasone Furoate [Nasonex] 1 spray NS Q12 #1 spray.pump 08/23/18 Prednisone [Deltasone 20 mg Tablet] 3 tab PO DAILY 5 Days tablet 08/23/18 Albuterol Sulfate [Proair HFA Inhalation Aerosol 8.5 gm MDI] 2 puff IH Q4H PRN #1 mdi 11/13/19 Albuterol Sulfate [Ventolin Hfa 8 gm Mdi] 2 puff IH Q4HP PRN #1 inhaler 03/19/20 Prednisone [Deltasone 20 mg Tablet] 40 mg PO DAILY #10 tablet 03/19/20 Hydrocodone/Acetaminophen [[place] 5-325 mg Tablet] 1 tab PO Q6 PRN 3 Days #12 tablet 04/01/20 Hydrocodone/Ibuprofen [Hydrocodone-Ibuprofen 7.5-200] 1 each PO Q6 PRN #12 tablet 04/03/20 Albuterol Sulfate [Ventolin Hfa 8 gm Mdi] 2 puff IH Q4HP PRN #1 inhaler 09/05/20 Budesonide/Formoterol Fumarate [Symbicort Hfa 80-4.5 Mcg Inhaler 6.9 gm] 2 puff IH DAILY #1 inhaler 09/05/20 Prednisone [Deltasone 20 mg Tablet] 40 mg PO DAILY #10 tablet 09/05/20 Allergies/Adverse Reactions: No Known Allergies Allergy (Verified 04/01/20 12:58) Review of Systems All systems: reviewed and no additional remarkable complaints except as stated Respiratory: PRESENT: cough, dyspnea Physical Exam Vital Signs: Temp Pulse Resp BP Pulse Ox 98.8 F 20 119/71 100 09/05/20 16:52 09/05/20 18:01 09/05/20 18:00 09/05/20 18:01 Intake & Output 09/04/20 09/05/20 09/06/20 06:59 06:59 06:59 Weight 61.9 kg General appearance: PRESENT: cooperative, severe distress, well-developed Head exam: PRESENT: atraumatic, normocephalic Eye exam: PRESENT: conjunctival injection. ABSENT: scleral icterus - Dirty sclera Ear exam: PRESENT: normal external ear exam. ABSENT: bleeding, drainage Mouth exam: PRESENT: other - BiPAP mask in place Neck exam: ABSENT: carotid bruit, JVD, lymphadenopathy Respiratory exam: PRESENT: prolonged expiratory phas, symmetrical, tachypnea, wheezes - Bilaterally. ABSENT: accessory muscle use, rales, rhonchi Cardiovascular exam: PRESENT: RRR, +S1, +S2. ABSENT: bradycardia, diastolic murmur, irregular rhythm, systolic murmur, tachycardia GI/Abdominal exam: PRESENT: normal bowel sounds, soft. ABSENT: distended, guarding, tenderness Rectal exam: PRESENT: deferred Gentrourinary exam: ABSENT: indwelling catheter Extremities exam: PRESENT: full ROM. ABSENT: calf tenderness, pedal edema Musculoskeletal exam: PRESENT: ambulatory, normal inspection. ABSENT: deformity, dislocation Neurological exam: PRESENT: alert, awake, oriented to person, oriented to place, oriented to time, oriented to situation, CN II-XII grossly intact. ABSENT: altered Psychiatric exam: PRESENT: anxious. ABSENT: agitated Focused psych exam: ABSENT: delusional, paranoid, restlessness Skin exam: PRESENT: dry, normal color, warm. ABSENT: rash Results Laboratory Results: 09/05/20 16:42 09/05/20 16:42 09/05/20 09/05/20 16:42 16:42 WBC 10.5 RBC 5.21 Hgb 15.4 Hct 45.0 MCV 86 MCH 29.5 MCHC 34.2 RDW 13.3 Plt Count 324 Seg Neutrophils % 89.1 H Sodium 138.3 Potassium 3.4 L Chloride 103 Carbon Dioxide 21 L Anion Gap 14 BUN 11 Creatinine 0.84 Est GFR ( Amer) > 60 Glucose 128 H Calcium 9.0 09/05/20 16:42 NT-Pro-B Natriuret Pep 70 Assessment and Plan - Diagnosis (1) Asthma exacerbation in COPD Is this a current diagnosis for this admission?: Yes (2) Acute and chronic respiratory failure with hypoxia Is this a current diagnosis for this admission?: Yes - Plan Summary Summary: 09/05/2020 The patient states that he typically responds to steroids with nebulizer treatme nts. He has a nebulizer at home and I asked him if his medications are . He does not know. He typically uses Symbicort and a rescue inhaler. I told him we would possibly try Trelegy at discharge. For tonight we will continue intravenous Solu-Medrol, aggressive scheduled and as needed nebulizer treatments and supplemental oxygen. I have asked that they keep his oxygen saturation between 90 and 95%. Hopefully will be able to wean him off of BiPAP through the night and slowly wean back to room air possibly tomorrow or at the latest on Monday. There is no evidence of infection and so I have not utilized any antibiotic therapy. - Time Time Spent with patient: 35 or more minutes Medications reviewed and adjusted accordingly: Yes Anticipated Discharge Disposition: Home, Self Care Anticipated Discharge Timeframe: within 48 hours
[2020-09-05] MEDS: IPRATROPIUM/ALBUTEROL 0.5-2.5 MG/3 ML AMPUL NEB SCH (19:34)
[2020-09-05 21:17] LABS: URINE AMPHETAMINES SCREEN NEGATIVE; URINE BARBITURATES SCREEN NEGATIVE; URINE COCAINE SCREEN NEGATIVE; URINE METHADONE SCREEN NEGATIVE; URINE PHENCYCLIDINE SCREEN NEGATIVE
[2020-09-05 21:33] LABS: URINE BENZODIAZEPINES SCREEN UNCONFIRMED POSITIVE
[2020-09-05 21:34] LABS: URINE MARIJUANA (THC) SCREEN UNCONFIRMED POSITIVE
[2020-09-05] MEDS: MONTELUKAST SODIUM 10 MG TABLET PO SCH (22:51)
[2020-09-05] MEDS: FAMOTIDINE 20 MG TABLET PO SCH (22:51)
[2020-09-05] MEDS: METHYLPREDNISOLONE INJ 40 MG/1 ML SDV IV SCH (22:51)
[2020-09-06] MEDS: IPRATROPIUM/ALBUTEROL 0.5-2.5 MG/3 ML AMPUL NEB SCH ×4 (01:43→19:36)
[2020-09-06] MEDS: METHYLPREDNISOLONE INJ 40 MG/1 ML SDV IV SCH ×3 (05:26→21:21)
[2020-09-06] MEDS ORDERED: AZITHROMYCIN 250 MG TABLET PO ONE (09:57)
[2020-09-06] MEDS ORDERED: ACETYLCYSTEINE 20% SOLN 800 MG/4 ML VIAL.NEB NEB ONE (10:00)
[2020-09-06 10:30] LABS: ABSOLUTE LYMPHOCYTES (AUTO) 0.9 10^3/uL (0.5-4.7); ABSOLUTE MONOCYTES (AUTO) 0.5 10^3/uL (0.1-1.4); ABSOLUTE NEUT (AUTO) 11.8 10^3/uL (1.7-8.2); BASOPHILS % (AUTO) 0.3 % (0-2); HEMATOCRIT 45.9 % (37.9-51.0); HEMOGLOBIN 15.4 g/dL (13.5-17.0); LYMPHOCYTES % (AUTO) 6.8 % (13-45); MEAN CORPUSCULAR HEMOGLOBIN 28.7 pg (27.0-33.4); MEAN CORPUSCULAR HGB CONC 33.6 g/dL (32.0-36.0); MEAN CORPUSCULAR VOLUME 86 fl (80-97); PLATELET COUNT 288 10^3/uL (150-450); RED BLOOD COUNT 5.37 10^6/uL (4.35-5.55); RED CELL DISTRIBUTION WIDTH 13.3 % (11.5-14.0); SEGMENTED NEUTROPHILS % (AUTO) 88.9 % (42-78); TOTAL CELLS COUNTED % (AUTO) 100 %; WHITE BLOOD COUNT 13.3 10^3/uL (4.0-10.5)
[2020-09-06 10:45] LABS: D-DIMER 1.24 ug/mL (0.00-0.50)
[2020-09-06 10:56] LABS: ALKALINE PHOSPHATASE 71 U/L (38-126); ANION GAP 7 (5-19); ASPARTATE AMINO TRANSFERASE 40 U/L (17-59); BILIRUBIN,DIRECT 0.1 mg/dL (0.0-0.4); BILIRUBIN,TOTAL 0.5 mg/dL (0.2-1.3); BLOOD UREA NITROGEN 14 mg/dL (7-20); C-REACTIVE PROTEIN 15.3 mg/L (<10.0); CALCIUM 9.3 mg/dL (8.4-10.2); CARBON DIOXIDE 25 mmol/L (22-30); CHLORIDE 102 mmol/L (98-107); CREATINE KINASE 1403 U/L (55-170); GLUCOSE 143 mg/dL (75-110)
[2020-09-06 11:30] LABS: POTASSIUM 4.5 mmol/L (3.6-5.0)
[2020-09-06] MEDS ORDERED: HYDRALAZINE HCL INJ/PF 20 MG/1 ML SDV IV PRN (11:40)
--- NOTE | 2020-09-06 11:44 | PDOC PROGRESS REPORT ---
Subjective Date:: 09/06/20 Subjective:: The patient is a 54-year-old male with a past medical history of asthma, COPD, hypertension, and depression who was admitted 09/05/2020 with Acute respiratory failure with hypoxia secondary to asthma exacerbation and COPD. Patient was seen on morning rounds. He was found resting bed, comfortably, on supplemental oxygen via nasal cannula at 2 L/min. Patient was noted to have 3-4 word tachypnea with accessory muscle use and audible wheezing when standing at the bedside. He states that he is feeling better as compared to yesterday. He confirms subjective fever/chills at home x3 days, loss of sense of taste (which she reports is somewhat returned this morning), and several days of diarrhea earlier this week. He denies known Covid contacts. He otherwise denies chest pain, pleuritic pain, palpitations, abdominal pain, nausea, vomiting, diarrhea at this time. He has no other questions or concerns. No concerns per nursing. Reason For Visit: ACUTE EXACERBATION COPD,ASTHMA Physical Exam Vital Signs: Temp Pulse Resp BP Pulse Ox 97.3 F 82 20 124/55 L 97 09/05/20 23:56 09/06/20 11:02 09/06/20 11:02 09/05/20 23:56 09/06/20 11:02 Intake & Output 09/05/20 09/06/20 09/07/20 06:59 06:59 06:59 Intake Total 520 Balance 520 Weight 63.9 kg General appearance: PRESENT: mild distress, thin, well-developed, well-nourished Head exam: PRESENT: atraumatic, normocephalic Eye exam: PRESENT: conjunctiva pink, EOMI, PERRLA. ABSENT: scleral icterus Mouth exam: PRESENT: moist, tongue midline Respiratory exam: PRESENT: accessory muscle use, prolonged expiratory phas, rhonchi, symmetrical, tachypnea, wheezes - Throughout, other - Supplemental oxygen by nasal cannula. ABSENT: rales Cardiovascular exam: PRESENT: RRR, tachycardia - HR 90-110 at rest. ABSENT: diastolic murmur, rubs, systolic murmur Pulses: PRESENT: normal dorsalis pedis pul Vascular exam: PRESENT: normal capillary refill Extremities exam: PRESENT: full ROM. ABSENT: calf tenderness, clubbing, pedal edema Neurological exam: PRESENT: alert, awake, oriented to person, oriented to place, oriented to time, oriented to situation, CN II-XII grossly intact. ABSENT: motor sensory deficit Psychiatric exam: PRESENT: appropriate affect, normal mood. ABSENT: homicidal ideation, suicidal ideation Skin exam: PRESENT: dry, intact, warm. ABSENT: cyanosis, rash Results Laboratory Results: 09/06/20 10:19 09/06/20 10:19 09/05/20 09/05/20 09/06/20 16:42 16:42 10:19 WBC 10.5 13.3 H RBC 5.21 5.37 Hgb 15.4 15.4 Hct 45.0 45.9 MCV 86 86 MCH 29.5 28.7 MCHC 34.2 33.6 RDW 13.3 13.3 Plt Count 324 288 Seg Neutrophils % 89.1 H 88.9 H Sodium 138.3 Potassium 3.4 L Chloride 103 Carbon Dioxide 21 L Anion Gap 14 BUN 11 Creatinine 0.84 Est GFR ( Amer) > 60 Glucose 128 H Calcium 9.0 Ferritin Total Bilirubin AST Alkaline Phosphatase C-Reactive Protein Total Protein Albumin 09/06/20 10:19 WBC RBC Hgb Hct MCV MCH MCHC RDW Plt Count Seg Neutrophils % Sodium 133.5 L Potassium 4.5 D Chloride 102 Carbon Dioxide 25 Anion Gap 7 BUN 14 Creatinine 0.79 Est GFR ( Amer) > 60 Glucose 143 H Calcium 9.3 Ferritin 31.80 Total Bilirubin 0.5 AST 40 Alkaline Phosphatase 71 C-Reactive Protein 15.3 H Total Protein 7.0 Albumin 4.0 09/05/20 09/06/20 16:42 10:19 Creatine Kinase 1403 H NT-Pro-B Natriuret Pep 70 Assessment and Plan - Diagnosis (1) Asthma exacerbation in COPD Is this a current diagnosis for this admission?: Yes Plan: Sputum culture pending Patient is admitted to the medical floor on continuous cardiac telemetry. Will provide supplemental oxygen and BiPAP as needed to maintain saturations greater than 89%. Due to sputum production; will start po Azithromycin. Start on scheduled and as needed nebulizer treatments. Mucomyst neb twice daily. Provide IV Solu-Medrol. Mucinex twice daily. Robitussin as needed. Pulmonary toilet is encouraged with incentive spirometer, flutter valve, and early ambulation. (2) Suspected 2019-nCoV infection Is this a current diagnosis for this admission?: Yes Plan: We will obtain COVID testing. D-dimer elevated to 1.24 Ferritin normal, CRP mildly elevated to 15.3, LDH slightly elevated at 251. CK 1403 Consider full dose Lovenox pending Covid results. Provide supplemental oxygen as needed maintain saturations greater than 89%. As needed nebulizer treatments. On Solu-Medrol for treatment of asthma/COPD. On po Azithromycin. Zinc, vitamin D, vitamin C, and melatonin supplementation. Encourage pulmonary toilet. Isolation precautions. (3) Acute respiratory failure with hypoxia Is this a current diagnosis for this admission?: Yes Plan: Secondary to #1 and 2. Evaluation management as above. (4) Hypertension Is this a current diagnosis for this admission?: Yes Plan: Pressures are slightly elevated but adequate for this time. Does not appear that he is on antihypertensive therapy. IV hydralazine as needed. Monitor closely and initiate oral antihypertensives as indicated. (5) Rhabdomyolysis Qualifiers: Rhabdomyolysis type: non-traumatic Qualified Code(s): M62.82 - Rhabdomyolysis Is this a current diagnosis for this admission?: Yes Plan: CK 1403 Possibly related to Acute respiratory failure/Covid; testing pending. Begin generous IV fluids. Strict I&O's. Follow-up chemistry and CK. (6) Elevated d-dimer Is this a current diagnosis for this admission?: Yes Plan: Possibly secondary to COVID; rapid covid test pending. If COVID positive; will start on therapeutic lovenox. If COVID negative; will obtain Chest CTA. - Plan Summary Summary: 09/05/2020 The patient states that he typically responds to steroids with nebulizer treatments. He has a nebulizer at home and I asked him if his medications are . He does not know. He typically uses Symbicort and a rescue inhaler. I told him we would possibly try Trelegy at discharge. For tonight we will continue intravenous Solu-Medrol, aggressive scheduled and as needed nebulizer treatments and supplemental oxygen. I have asked that they keep his oxygen saturation between 90 and 95%. Hopefully will be able to wean him off of BiPAP through the night and slowly wean back to room air possibly tomorrow or at the latest on Monday. There is no evidence of infection and so I have not utilized any antibiotic therapy. - Time Time Spent with patient: 35 or more minutes Medications reviewed and adjusted accordingly: Yes Anticipated Discharge Disposition: Home, Self Care Anticipated Discharge Timeframe: within 48 hours
[2020-09-06] MEDS: ENOXAPARIN SODIUM INJ 40 MG/0.4 ML DISP.SYRIN SUBCUT SCH (12:11)
[2020-09-06] MEDS: FAMOTIDINE 20 MG TABLET PO SCH ×2 (12:11→21:21)
[2020-09-06] MEDS: GUAIFENESIN 600 MG TABLET.SA PO SCH ×2 (12:11→21:21)
[2020-09-06] MEDS: CHOLECALCIFEROL (D3) 1,000 UNIT (25 MCG) TABLET PO SCH (12:12)
[2020-09-06] MEDS: ASCORBIC ACID 500 MG TABLET PO SCH ×2 (12:12→17:41)
[2020-09-06] MEDS: ZINC SULFATE 220 MG CAPSULE PO SCH (12:12)
[2020-09-06] MEDS ORDERED: HYDRALAZINE HCL 25 MG TABLET PO PRN (12:47)
[2020-09-06] MEDS: NORMAL SALINE 1000 ML 1,000 ML IV PRN ×2 (13:44→21:21)
--- NOTE | 2020-09-06 14:39 | RADIOLOGY REPORT (SQ) ---
EXAM DESCRIPTION: CTA CHEST IMAGES COMPLETED DATE/TIME: 09/06/2020 1:14 pm REASON FOR STUDY: dyspnea, hypoxia, elevated d. dimer COMPARISON: Chest films 09/05/2020 TECHNIQUE: CT scan of the chest performed using helical scanning technique with dynamic intravenous contrast injection. Images reviewed with lung, soft tissue and bone windows. Reconstructed coronal and sagittal MPR images reviewed. Additional 3 dimensional post-processing performed to develop Maximal Intensity Projection images (TX P). All images stored on PACS. All CT scanners at this facility use dose modulation, iterative reconstruction, and/or weight based d osing when appropriate to reduce radiation dose to as low as reasonably achievable (ALARA). [facility]: Dose Right [facility]: CareDose [facility]: Dose Right [facility]: Teradose 4D [facility]: Buildingeye CONTRAST TYPE AND DOSE: contrast/concentration: Isovue 350.00 mmol/ml; Total Contrast Delivered: 52. 0 ml; Total Saline Delivered: 56.0 ml Contrast bolus adequate for pulmonary arteries and aorta. RENAL FUNCTION: Creatinine 0.8 RADIATION DOSE: CT Rad equipment meets quality standard of care and radiation dose reduction techniq ues were employed. CTDIvol: 9.9 - 14.3 mGy. DLP: 571 mGy-cm. . LIMITATIONS: None. FINDINGS: LUNGS AND PLEURA: There are patchy bilateral alveolar and interstitial infiltrates along t he periphery of both lung bases, worrisome for viral or atypical pneumonia. No pleural effusion. No pneumothorax. AORTA AND GREAT VESSELS: No aneurysm. Contrast bolus not optimized for the aorta. HEART: No pericardial effusion. No significant coronary artery calcifications. PULMONARY ARTERIES: No emboli visualized in the main pulmonary arteries or the segmental branches. HILAR AND MEDIASTINAL STRUCTURES: No identified masses or abnormal nodes. HARDWARE: None in the chest. UPPER ABDOMEN: No significant findings. Limited exam. THYROID AND OTHER SOFT TISSUES: No masses. No adenopathy. BONES: No acute or significant finding. 3D MIPS: Confirm above findings. OTHER: No other significant finding. IMPRESSION: There are patchy bilateral alveolar and interstitial infiltrates along the periphery of both lung bases, worrisome for viral or atypical pneumonia. COMMENT: Quality ID # [id number]: Final reports with documentation of one or more dose reduction techniques (e.g., Automated exposure control, adjustment of the mA and/or kV according to patient size, use of iterative reconstruction technique) TECHNICAL DOCUMENTATION: JOB ID: [id number] 2010 [employer]- All Rights Reserved Reading location - IP/workstation name: [id number]
[2020-09-06] MEDS: ACETYLCYSTEINE 20% SOLN 800 MG/4 ML VIAL.NEB NEB SCH (19:36)
[2020-09-06] MEDS: MONTELUKAST SODIUM 10 MG TABLET PO SCH (21:21)
[2020-09-07] MEDS: IPRATROPIUM/ALBUTEROL 0.5-2.5 MG/3 ML AMPUL NEB SCH ×4 (02:32→19:18)
[2020-09-07] MEDS: NORMAL SALINE 1000 ML 1,000 ML IV PRN ×2 (05:25→17:51)
[2020-09-07] MEDS: METHYLPREDNISOLONE INJ 40 MG/1 ML SDV IV SCH ×2 (05:26→21:29)
[2020-09-07 05:51] LABS: HEMATOCRIT 41.1 % (37.9-51.0); HEMOGLOBIN 13.7 g/dL (13.5-17.0); MEAN CORPUSCULAR HEMOGLOBIN 28.9 pg (27.0-33.4); MEAN CORPUSCULAR HGB CONC 33.4 g/dL (32.0-36.0); MEAN CORPUSCULAR VOLUME 87 fl (80-97); PLATELET COUNT 281 10^3/uL (150-450); RED BLOOD COUNT 4.75 10^6/uL (4.35-5.55); RED CELL DISTRIBUTION WIDTH 13.4 % (11.5-14.0)
[2020-09-07 06:28] LABS: ANION GAP 8 (5-19); BLOOD UREA NITROGEN 16 mg/dL (7-20); CALCIUM 8.4 mg/dL (8.4-10.2); CARBON DIOXIDE 23 mmol/L (22-30); CHLORIDE 106 mmol/L (98-107); CREATINE KINASE 861 U/L (55-170); GLUCOSE 111 mg/dL (75-110); POTASSIUM 4.6 mmol/L (3.6-5.0)
[2020-09-07] MEDS ORDERED: INFLUENZA QUAD (6MOS+) 2020-21 VAC 0.5 ML SYR IM ONE (08:00)
[2020-09-07] MEDS: ACETYLCYSTEINE 20% SOLN 800 MG/4 ML VIAL.NEB NEB SCH ×2 (08:33→19:18)
[2020-09-07] MEDS: ENOXAPARIN SODIUM INJ 40 MG/0.4 ML DISP.SYRIN SUBCUT SCH (10:27)
[2020-09-07] MEDS: CHOLECALCIFEROL (D3) 1,000 UNIT (25 MCG) TABLET PO SCH (10:28)
[2020-09-07] MEDS: ZINC SULFATE 220 MG CAPSULE PO SCH (10:28)
[2020-09-07] MEDS: ASCORBIC ACID 500 MG TABLET PO SCH (10:28)
[2020-09-07] MEDS: AZITHROMYCIN 250 MG TABLET PO SCH (10:29)
[2020-09-07] MEDS: FAMOTIDINE 20 MG TABLET PO SCH ×2 (10:29→21:29)
[2020-09-07] MEDS: GUAIFENESIN 600 MG TABLET.SA PO SCH ×2 (10:29→21:29)
--- NOTE | 2020-09-07 11:42 | PDOC PROGRESS REPORT ---
Subjective Date:: 09/07/20 Subjective:: The patient is a 54-year-old male with a past medical history of asthma, COPD, hypertension, and depression who was admitted 09/05/2020 with Acute respiratory failure with hypoxia secondary to asthma exacerbation and COPD. Patient was seen on morning rounds. He was found resting bed, comfortably, on supplemental oxygen via nasal cannula at 2 L/min. Continues to have audible w heezing when standing at the bedside; tachypnea and accessory muscle use have resolved. He states that he is feeling better as compared to yesterday but is concerned about possible oxygen needs (desat overnight while ambulating). Continues to have a productive cough. He denies chest pain, pleuritic pain, palpitations, dyspnea at rest, abdominal pain, nausea, vomiting, diarrhea at this time. He has no other questions or concerns. No concerns per nursing. Reason For Visit: ACUTE EXACERBATION COPD,ASTHMA Physical Exam Vital Signs: Temp Pulse Resp BP Pulse Ox 98.6 F 92 18 140/74 H 100 09/07/20 09:00 09/07/20 09:00 09/07/20 09:00 09/07/20 09:00 09/07/20 09:00 Intake & Output 09/06/20 09/07/20 09/08/20 06:59 06:59 06:59 Intake Total 520 3080 Output Total 1610 Balance 520 1470 Weight 63.9 kg 63.6 kg General appearance: PRESENT: no acute distress, cooperative, thin, well- developed, well-nourished Head exam: PRESENT: atraumatic, normocephalic Eye exam: PRESENT: conjunctiva pink, EOMI, PERRLA. ABSENT: scleral icterus Mouth exam: PRESENT: moist, tongue midline Respiratory exam: PRESENT: symmetrical, unlabored, wheezes - throughout; slight improvement from yesterday, other - room air. ABSENT: rales, rhonchi Cardiovascular exam: PRESENT: RRR. ABSENT: diastolic murmur, rubs, systolic murmur Vascular exam: PRESENT: normal capillary refill Extremities exam: PRESENT: full ROM. ABSENT: calf tenderness, clubbing, pedal edema Musculoskeletal exam: PRESENT: ambulatory Neurological exam: PRESENT: alert, awake, oriented to person, oriented to place, oriented to time, oriented to situation, CN II-XII grossly intact. ABSENT: motor sensory deficit Psychiatric exam: PRESENT: anxious, appropriate affect, normal mood. ABSENT: homicidal ideation, suicidal ideation Skin exam: PRESENT: dry, intact, warm. ABSENT: cyanosis, rash Results Laboratory Results: 09/07/20 04:40 09/07/20 04:40 09/06/20 09/07/20 09/07/20 10:19 04:40 04:40 WBC 15.0 H RBC 4.75 Hgb 13.7 Hct 41.1 MCV 87 MCH 28.9 MCHC 33.4 RDW 13.4 Plt Count 281 Sodium 133.5 L 136.7 L Potassium 4.5 D 4.6 Chloride 102 106 Carbon Dioxide 25 23 Anion Gap 7 8 BUN 14 16 Creatinine 0.79 0.80 Est GFR ( Amer) > 60 > 60 Glucose 143 H 111 H Calcium 9.3 8.4 Ferritin 31.80 Total Bilirubin 0.5 AST 40 Alkaline Phosphatase 71 C-Reactive Protein 15.3 H Total Protein 7.0 Albumin 4.0 09/05/20 09/06/20 09/07/20 16:42 10:19 04:40 Creatine Kinase 1403 H 861 H NT-Pro-B Natriuret Pep 70 Impressions: Chest/Abdomen CTA 09/06/20 00:00 IMPRESSION: There are patchy bilateral alveolar and interstitial infiltrates along the periphery of both lung bases, worrisome for viral or atypical pneumonia. Assessment and Plan - Diagnosis (1) Asthma exacerbation in COPD Is this a current diagnosis for this admission?: Yes Plan: Sputum culture pending Patient is admitted to the medical floor. Will provide supplemental oxygen and BiPAP as needed to maintain saturations greater than 89%. Continue po Azithromycin; day #2/5 Start on scheduled and as needed nebulizer treatments. Mucomyst neb twice daily. Provide IV Solu-Medrol. Mucinex twice daily. Robitussin as needed. Pulmonary toilet is encouraged with incentive spirometer, flutter valve, and early ambulation. (2) Acute respiratory failure with hypoxia Is this a current diagnosis for this admission?: Yes Plan: Improved. Secondary to #1. Evaluation management as above. (3) Hypertension Is this a current diagnosis for this admission?: Yes Plan: Pressures are slightly elevated but adequate for this time. Does not appear that he is on antihypertensive therapy. Hydralazine as needed. Monitor closely and initiate oral antihypertensives as indicated. Outpatient follow up with PCP. (4) Rhabdomyolysis Qualifiers: Rhabdomyolysis type: non-traumatic Qualified Code(s): M62.82 - Rhabdo myolysis Is this a current diagnosis for this admission?: Yes Plan: Improved; CK 1403-> 861 Likely related to Acute respiratory failure. Begin generous IV fluids. Strict I&O's. Follow-up chemistry and CK. (5) Elevated d-dimer Is this a current diagnosis for this admission?: Yes Plan: COVID negative. CTA negative for PE. (6) Suspected 2019-nCoV infection Is this a current diagnosis for this admission?: Yes Plan: Ruled out; COVID negative. D-dimer elevated to 1.24 Ferritin normal, CRP mildly elevated to 15.3, LDH slightly elevated at 251. CK 1403 - Time Time Spent with patient: 25-34 minutes Medications reviewed and adjusted accordingly: Yes Anticipated Discharge Disposition: Home, Self Care Anticipated Discharge Timeframe: within 24 hours
[2020-09-07] MEDS: MONTELUKAST SODIUM 10 MG TABLET PO SCH (21:29)
[2020-09-07] MEDS ORDERED: (PENDING PHARMACY ID) (Budesonide/Formoterol Fumarate 60 PUFF/6 GM Inhaler) IH SCH (22:00)
[2020-09-08] MEDS: NORMAL SALINE 1000 ML 1,000 ML IV PRN ×2 (00:54→09:42)
[2020-09-08] MEDS: IPRATROPIUM/ALBUTEROL 0.5-2.5 MG/3 ML AMPUL NEB SCH ×3 (02:19→13:31)
[2020-09-08 06:15] LABS: HEMATOCRIT 39.5 % (37.9-51.0); HEMOGLOBIN 13.3 g/dL (13.5-17.0); MEAN CORPUSCULAR HEMOGLOBIN 28.8 pg (27.0-33.4); MEAN CORPUSCULAR HGB CONC 33.6 g/dL (32.0-36.0); MEAN CORPUSCULAR VOLUME 86 fl (80-97); PLATELET COUNT 261 10^3/uL (150-450); RED BLOOD COUNT 4.61 10^6/uL (4.35-5.55); RED CELL DISTRIBUTION WIDTH 13.6 % (11.5-14.0)
[2020-09-08 06:33] LABS: ANION GAP 6 (5-19); BLOOD UREA NITROGEN 18 mg/dL (7-20); CALCIUM 8.1 mg/dL (8.4-10.2); CARBON DIOXIDE 22 mmol/L (22-30); CHLORIDE 107 mmol/L (98-107); GLUCOSE 112 mg/dL (75-110); POTASSIUM 4.5 mmol/L (3.6-5.0)
[2020-09-08] MEDS: ACETYLCYSTEINE 20% SOLN 800 MG/4 ML VIAL.NEB NEB SCH (08:16)
[2020-09-08] MEDS: GUAIFENESIN 600 MG TABLET.SA PO SCH (09:42)
[2020-09-08] MEDS: AZITHROMYCIN 250 MG TABLET PO SCH (09:42)
[2020-09-08] MEDS: FAMOTIDINE 20 MG TABLET PO SCH (09:42)
[2020-09-08] MEDS: METHYLPREDNISOLONE INJ 40 MG/1 ML SDV IV SCH (09:43)
[2020-09-08] MEDS: ENOXAPARIN SODIUM INJ 40 MG/0.4 ML DISP.SYRIN SUBCUT SCH (09:43)
[2020-09-08] MEDS ORDERED: FLUTICASONE/VILANTEROL 200-25 MCG/DOSE IH SCH (10:00)
[2020-09-08 12:36] VITALS: BP 130/62
--- NOTE | 2020-09-08 14:23 | PDOC DISCHARGE SUMMARY ---
Impression - Admit/DC Date/PCP Admission Date/Primary Care Provider: 09/05/20 17:23 HAILY NOGUEIRA MD Discharge Date: 09/08/20 - Discharge Diagnosis (1) Asthma exacerbation in COPD Is this a current diagnosis for this admission?: Yes (2) Acute respiratory failure with hypoxia Is this a current diagnosis for this admission?: Yes (3) Hypertension Is this a current diagnosis for this admission?: Yes (4) Rhabdomyolysis Is this a current diagnosis for this admission?: Yes (5) Elevated d-dimer Is this a current diagnosis for this admission?: Yes (6) Suspected 2019-nCoV infection Is this a current diagnosis for this admission?: Yes - Additional Information Resuscitation Status: Full Code Discharge Diet: Regular Discharge Activity: Activity As Tolerated, Balance Activity w/Rest, Slowly Increase Activity Referrals: VERNON NARAYANAN MD [ACTIVE PROVISIONAL STAFF] - 10/13/20 1:30 pm (within 5-6 weeks for COPD) [facility] [NO LOCAL MD] - (within 1 week 09/08/20 1200 pt will make follow up) Prescriptions: Prednisone [Deltasone 20 mg Tablet] 60 mg PO DAILY #12 tablet Ipratropium/Albuterol Sulfate [Duoneb 3 ml Ampul] 3 ml NEB RTQ6HP PRN #120 vial.neb PRN Reason: Guaifenesin [Mucinex Sr 600 mg Tablet.sa] 600 mg PO Q12 #14 tablet.sa Montelukast Sodium [Singulair 10 mg Tablet] 10 mg PO QHS #30 tablet Albuterol Sulfate [Ventolin Hfa 8 gm Mdi] 2 puff IH Q4HP PRN #1 inhaler PRN Reason: Azithromycin [Zithromax 250 mg Tablet] 250 mg PO DAILY #3 tablet Home Medications: Budesonide/Formoterol Fumarate [Symbicort HFA 160-4.5 mcg Inhaler 6 gm] 2 puff IH Q12 09/06/20 Acetaminophen [Tylenol 325 mg Tablet] 650 mg PO Q4HP PRN tablet 09/08/20 Albuterol Sulfate [Ventolin Hfa 8 gm Mdi] 2 puff IH Q4HP PRN #1 inhaler 09/08/20 Azithromycin [Zithromax 250 mg Tablet] 250 mg PO DAILY #3 tablet 09/08/20 Guaifenesin [Mucinex Sr 600 mg Tablet.sa] 600 mg PO Q12 #14 tablet.sa 09/08/20 Ipratropium/Albuterol Sulfate [Duoneb 3 ml Ampul] 3 ml NEB RTQ6HP PRN #120 vial.neb 09/08/20 Montelukast Sodium [Singulair 10 mg Tablet] 10 mg PO QHS #30 tablet 09/08/20 Prednisone [Deltasone 20 mg Tablet] 60 mg PO DAILY #12 tablet 09/08/20 History of Present Illiness History of Present Illness: Per H&P by Dr. Barber: MEGAN KRISHNAMURTHY is a 54 year old male who was discharged from the emergency department 1 hour before returning. He initially presented short of breath. It was felt to be an exacerbation of asthma/COPD. He responded to steroids. Chest x-ray showed no pneumonia and the patient was discharged. He states that when he got home he became acutely short of breath. He called rescue and was brought back to the emergency department. This time he required BiPAP to maintain oxygen saturation over 90%. Hospital Course Hospital Course: (1) Asthma exacerbation in COPD Exacerbation is resolved. Sputum culture pending Patient was admitted to the medical floor. Received supplemental oxygen and BiPAP to maintain saturations greater than 89%; now maintaining saturations in the mid to high 90s on room air. Continue po Azithromycin; day #3/5. Rx provided to complete course after discharge. Received scheduled and as needed nebulizer treatments. He is provided an Rx for Duonebs and Ventolin HFA. Recievied IV Solu-Medrol; will d/c with prednisone therapy. Cotinue Mucinex twice daily. Start Singulair nightly. Continue pulmonary toilet with incentive spirometer, flutter valve, and frequent ambulation. Referral to water project engineer, Dr. Narayanan, provided. (2) Acute respiratory failure with hypoxia Resolved. Secondary to #1. Evaluation management as above. (3) Hypertension Pressures are slightly elevated but adequate for this time. Does not appear that he is on antihypertensive therapy. Encouraged lifestyle and dietary modification. Outpatient follow up with PCP. (4) Rhabdomyolysis Resolved; CK 1403-> 861-> 231 Likely related to Acute respiratory failure. Received generous IV fluids. (5) Elevated d-dimer COVID negative. CTA negative for PE. (6) Suspected 2019-nCoV infection Ruled out; COVID negative. D-dimer elevated to 1.24 Ferritin normal, CRP mildly elevated to 15.3, LDH slightly elevated at 251. CK 1403 Physical Exam Vital Signs: Temp Pulse Resp BP Pulse Ox 98.7 F 66 18 130/62 H 96 09/08/20 13:22 09/08/20 13:31 09/08/20 13:31 09/08/20 13:22 09/08/20 13:31 Intake & Output 09/07/20 09/08/20 09/09/20 06:59 06:59 06:59 Intake Total 3080 3186 2033 Output Total 1610 1550 400 Balance 1470 1636 1633 Weight 63.6 kg 63.6 kg General appearance: PRESENT: no acute distress, cooperative, thin, well- developed, well-nourished Head exam: PRESENT: atraumatic, normocephalic Eye exam: PRESENT: conjunctiva pink, EOMI, PERRLA. ABSENT: scleral icterus Mouth exam: PRESENT: moist, tongue midline Respiratory exam: PRESENT: rhonchi - Scant bilaterally; significantly improved, symmetrical, unlabored, wheezes - Scant expiratory; significantly improved, other - Ambulatory on room air. ABSENT: rales Cardiovascular exam: PRESENT: RRR. ABSENT: diastolic murmur, rubs, systolic murmur Vascular exam: PRESENT: normal capillary refill Extremities exam: PRESENT: full ROM. ABSENT: calf tenderness, clubbing, pedal edema Musculoskeletal exam: PRESENT: ambulatory Neurological exam: PRESENT: alert, awake, oriented to person, oriented to place, oriented to time, oriented to situation, CN II-XII grossly intact. ABSENT: motor sensory deficit Psychiatric exam: PRESENT: appropriate affect, normal mood. ABSENT: homicidal ideation, suicidal ideation Skin exam: PRESENT: dry, intact, warm. ABSENT: cyanosis, rash Results Laboratory Results: WBC 11.0 10^3/uL (4.0-10.5) H 09/08/20 04:22 RBC 4.61 10^6/uL (4.35-5.55) 09/08/20 04:22 Hgb 13.3 g/dL (13.5-17.0) L 09/08/20 04:22 Hct 39.5 % (37.9-51.0) 09/08/20 04:22 MCV 86 fl (80-97) 09/08/20 04:22 MCH 28.8 pg (27.0-33.4) 09/08/20 04:22 MCHC 33.6 g/dL (32.0-36.0) 09/08/20 04:22 RDW 13.6 % (11.5-14.0) 09/08/20 04:22 Plt Count 261 10^3/uL (150-450) 09/08/20 04:22 Lymph % (Auto) 6.8 % (13-45) L 09/06/20 10:19 Beauregard % (Auto) 4.0 % (3-13) 09/06/20 10:19 Eos % (Auto) 0.0 % (0-6) 09/06/20 10:19 Baso % (Auto) 0.3 % (0-2) 09/06/20 10:19 Absolute Neuts (auto) 11.8 10^3/uL (1.7-8.2) H 09/06/20 10:19 Absolute Lymphs (auto) 0.9 10^3/uL (0.5-4.7) 09/06/20 10:19 Absolute Monos (auto) 0.5 10^3/uL (0.1-1.4) 09/06/20 10:19 Absolute Eos (auto) 0.0 10^3/uL (0.0-0.6) 09/06/20 10:19 Absolute Basos (auto) 0.0 10^3/uL (0.0-0.2) 09/06/20 10:19 Seg Neutrophils % 88.9 % (42-78) H 09/06/20 10:19 Fibrinogen 398 mg/dL (209-497) 09/06/20 10:19 D-Dimer 1.24 ug/mL (0.00-0.50) H 09/06/20 10:19 Sodium 134.9 mmol/L (137-145) L 09/08/20 04:22 Potassium 4.5 mmol/L (3.6-5.0) 09/08/20 04:22 Chloride 107 mmol/L (98-107) 09/08/20 04:22 Carbon Dioxide 22 mmol/L (22-30) 09/08/20 04:22 Anion Gap 6 (5-19) 09/08/20 04:22 BUN 18 mg/dL (7-20) 09/08/20 04:22 Creatinine 0.82 mg/dL (0.52-1.25) 09/08/20 04:22 Est GFR ( Amer) > 60 (>60) 09/08/20 04:22 Est GFR (MDRD) Non-Af > 60 (>60) 09/08/20 04:22 Glucose 112 mg/dL (75-110) H 09/08/20 04:22 Calcium 8.1 mg/dL (8.4-10.2) L 09/08/20 04:22 Ferritin 31.80 ng/mL (17.9-464.0) 09/06/20 10:19 Total Bilirubin 0.5 mg/dL (0.2-1.3) 09/06/20 10:19 Direct Bilirubin 0.1 mg/dL (0.0-0.4) 09/06/20 10:19 Neonat Total Bilirubin Not Reportable 09/06/20 10:19 Neonat Direct Bilirubin Not Reportable 09/06/20 10:19 Neonat Indirect Bili Not Reportable 09/06/20 10:19 AST 40 U/L (17-59) 09/06/20 10:19 ALT 33 U/L (<50) 09/06/20 10:19 Alkaline Phosphatase 71 U/L (38-126) 09/06/20 10:19 Lactate Dehydrogenase 251 U/L (120-246) H 09/06/20 10:19 Creatine Kinase 231 U/L (55-170) H 09/08/20 04:22 C-Reactive Protein 15.3 mg/L (<10.0) H 09/06/20 10:19 NT-Pro-B Natriuret Pep 70 pg/mL (<125) 09/05/20 16:42 Total Protein 7.0 g/dL (6.3-8.2) 09/06/20 10:19 Albumin 4.0 g/dL (3.5-5.0) 09/06/20 10:19 Urine Opiates Screen NEGATIVE 09/05/20 20:42 Urine Methadone Screen NEGATIVE 09/05/20 20:42 Ur Barbiturates Screen NEGATIVE 09/05/20 20:42 Ur Phencyclidine Scrn NEGATIVE 09/05/20 20:42 Ur Amphetamines Screen NEGATIVE 09/05/20 20:42 U Benzodiazepines Scrn UNCONFIRMED POSITIVE 09/05/20 20:42 Urine Cocaine Screen NEGATIVE 09/05/20 20:42 U Marijuana (THC) Screen UNCONFIRMED POSITIVE 09/05/20 20:42 Influenza A (RT-PCR) NEGATIVE (NEGATIVE) 09/06/20 10:20 Influenza B (RT-PCR) NEGATIVE (NEGATIVE) 09/06/20 10:20 RSV (RT-PCR) NEGATIVE (NEGATIVE) 09/06/20 10:20 SARS-CoV-2 Rap RNA(RT-PCR) NEGATIVE (NEGATIVE) 09/06/20 10:20 09/05/20 16:42 NT-Pro-B Natriuret Pep 70 Impressions: Chest/Abdomen CTA 09/06/20 00:00 IMPRESSION: There are patchy bilateral alveolar and interstitial infiltrates along the periphery of both lung bases, worrisome for viral or atypical pneumonia. Plan Plan of Treatment: Patient is discharged home in stable condition. He is advised follow-up with his primary care provider within 1 week. He has been provided a referral to Dr. Narayanan for further evaluation and management of his COPD. He is instructed to take his medications as prescribed. We discussed avoiding known respiratory triggers (dust, pollen, strong smells, smoke, pet dander). Return to the emergency department, as needed, for concerning symptoms. Time Spent: Greater than 30 Minutes Stroke Is this a Stroke Patient?: No Acute Heart Failure Is this a Heart Failure Patient?: No
[2020-09-10 14:37] LABS: BENZODIAZEPINE CONFIRMATION UR Negative (Cutoff=300)
[2020-09-10 14:38] LABS: CANNABINOID CONFIRMATION UR Positive (.)
== END 2020-09-08 14:08 | disposition home or self-care (01) ==
LOC: ER 16:31 → INTOOBSV 17:23 → EH 17:23 → 4N 20:55
PROVIDERS: ADMIT Hospitalist; ATTEND Registered Nurse
DX: J45.901 Unspecified asthma with (acute) exacerbation (principal); J44.1 Chronic obstructive pulmonary disease with (acute) exacerbation; J96.01 Acute respiratory failure with hypoxia; I10 Essential (primary) hypertension; M62.82 Rhabdomyolysis; R79.1 Abnormal coagulation profile; Z23 Encounter for immunization; Z87.891 Personal history of nicotine dependence; Z20.828 Contact with and (suspected) exposure to other viral communicable diseases; Z79.899 Other long term (current) drug therapy
CPT/HCPCS: 94640 ×5; 99285; 36415 ×4; 87070; 87205; 82550 ×3; 82728; 83615; 85025 ×2; 85027 ×2; 85384; 0241U ×4; 86140; 80048 ×3; 80053; 80307; 85379; 83880; 71275; 90686; 94799; 94660 ×3; 94667; G0378 ×5; G0008; G0480 ×4; J2920 ×4; J1650 ×3; J3490 ×6; J7030 ×3; J7613; J7614; C9803; 80349; 90471